=== PATIENT | male | born 1960 | race Caucasian/White ===

== ENCOUNTER 2019-08-06 07:46 | Emergency (ER) | payer BC, SELFPAY ==
[2019-08-06] VITALS (18 sets, daily range): BP systolic 136–157; BP diastolic 89–112; PULSE 79–175; RESP 13–22; TEMP 36.2; O2SAT 89–98
--- NOTE | ~2019-08-06 | XR_ITS ---
EXAMINATION: XR chest 1V portable DATE: 08/06/2019 08:21 INDICATION: Shortness of breath. Tachycardia. TECHNIQUE: A single frontal view of the chest was obtained. COMPARISON: None. FINDINGS: The chest demonstrates clear lungs without pneumonia, pleural effusion, or pneumothorax. Th e heart size is normal. IMPRESSION: 1. No acute cardiopulmonary disease. Reviewed, dictated and finalized at location A. PROGRAMMER ANALYST
--- NOTE | 2019-08-06 07:58 | ECG_ITS ---
Measurements Intervals [place] Rate: 169 P: TN: 0 QRS: 10 QRSD: 77 T: 33 QT: 250 QTc: 420 Interpretive Statements ATRIAL FIBRILLATION WITH RAPID VENTRICULAR RESPONSE BASELINE ARTIFACT- V3 ABNORMAL ECG Electronically Signed On 08-06-2019 10:34:26 MAGENTO WEB DEVELOPER by Phoenix Parmar D.O.
--- NOTE | 2019-08-06 08:00 | ED.ARRPALP ---
HPI - Arrhythmia/Palpitations General Chief Complaint: Arrhythmia/Palpitations Stated Complaint: sob, weak Time Seen by Provider: 08/06/19 07:53 Source: patient Mode of arrival: ambulatory Limitations: no limitations History of Present Illness HPI narrative: 58 yo male with h/o hypertension who presents with c/o rapid heart rate. Patient states he noticed yesterday his heart was beating rapidly and it has continued this morning. He also noticed when he was walking into work this morning he was having difficulty breathing. HE denies chest pain, nausea, vomiting, cough or fever. He denies previous history of palpitations or an arrhythmia. He notes he takes lisinopril, metoprolol and felodipine for hypertension and he has taken these medications this morning. He also denies cardiac disease. He has history of heavy alcohol use but he denies history of withdrawal symptoms. MD complaint: rapid heart beat Onset (ago): day(s) (1) Duration: constant Related Data Home Medications Medication Instructions Recorded Confirmed felodipine mg PO 08/06/19 lisinopril 08/06/19 metoprolol succinate PO 08/06/19 Allergies Allergy/AdvReac Type Severity Reaction Status Date / Time No Known Allergies Allergy Verified 08/06/19 08:01 Review of Systems Review of Systems: All systems reviewed & are unremarkable except as noted in HPI and below Constitutional: Constitutional: Denies chills, Denies fever(s) and Reports weakness Cardiovascular: Cardiovascular: Denies chest pain, Reports rapid heart rate and Denies radiating jaw, neck or arm pain Respiratory: Respiratory: Denies cough, Reports dyspnea and Denies wheezing Gastrointestinal: Gastrointestinal: Denies abdominal pain, Denies nausea and Denies vomiting Neurologic: Denies dizziness PMFSH Past Medical History Medical History (Updated 08/06/19 @ 09:40 by Suzanne Etienne MD) Hypertension Social History Social History (Updated 08/06/19 @ 08:06 by Suzanne Etienne MD) Smoking packs per day: 2 Smoking cigarettes per day: 40.0 Smoking status: Current every day smoker Alcohol intake: current Substance use: never Gender identity (if verbalized by the patient): Male Comments Surgical history of bilateral meniscus knee repair. Exam Narrative: Exam Narrative: GENERAL: Well-appearing, well-nourished, and in no acute distress. HEAD: Normocephalic, atraumatic EYES: PERRLA and EOMI, conjunctiva clear without discharge THROAT:Mucous membranes moist, Oropharynx normal without erythema, exudate, peritonsillar swelling or fluctuance NECK: Supple, without lymphadenopathy or mass RESPIRATORY: No respiratory distress, Airway patent, Respirations non-labored, Clear to auscultation without rales, rhonchi or wheeze HEART: irregular irRegular rhythm and tachycardic rate No murmur heard. Normal peripheral pulses. ABDOMEN: Soft, nontender, nondistended, normal active bowel sounds. No masses. No rebound or guarding, No organomegaly. EXTREMITIES: bilateral 1+ pitting edema, normal strength with full range of motion. SKIN: Warm, dry, normal color without rash NEURO: Alert and oriented x3. CN 2-12 grossly intact. No focal deficits. PSYCH: Normal mood and affect. Course Reevaluation(s) Reevaluation #1: Patient has spontaneously converted to sinus rhythm Date: 08/06/19 Time: 08:20 Reevaluation #2: I Discussed case with Lisseth [facility] Health And Safety Instructor for heart care group. She agrees patient can follow up for outpatient evaluation. And I will discuss with PCP about anticoagulation. Date: 08/06/19 Time: 08:59 Reevaluation #3: I discussed case with Aden NAZARIO aitchbone breaker for Dr. Kaminski. PAtient has CHADs score of 2 given HtN and DM so agreeable with anticoagulation. Date: 08/06/19 Time: 09:29 Additional Reevaluation(s): Patient continues to be sinus rhythm with rate of 83. I discussed plan to follow up with Dr. Kaminski and loom checker as outpatient. I Discussed blood sugar is elevat
[2019-08-06 08:08] LABS: Basophils Absolute Auto 0.1 K/mm3 (0.0-0.1); Basophils Percent Auto 0.8 % (0.2-1.2); Eosinophils Absolute Auto 0.1 K/mm3 (0-0.3); Eosinophils Percent Auto 1.2 % (0-4.4); Hematocrit 50.7 % (42.0-52.0); Hemoglobin 17.4 g/dL (14.0-18.0); Immature Granulocyte Absolute 0.05 K/mm3 (0.00-0.031); Immature Granulocyte Percent A 0.5 % (0-0.5); Lymphocytes Absolute Auto 1.78 K/mm3 (0.9-3.2); Lymphocytes Percent Auto 16.4 % (18.3-44.2); Mean Corpuscular HGB Conc 34.3 g/dl (32-36); Mean Corpuscular Hemoglobin 32.6 pg (26-34); Mean Corpuscular Volume 94.9 fl (80-100); Mean Platelet Volume 8.8 fl (7.4-10.4); Monocytes Absolute Auto 0.7 K/mm3 (0.1-0.6); Monocytes Percent Auto 6.3 % (2.6-8.5); Neutrophils Absolute Auto 8.1 K/mm3 (1.3-6.7); Neutrophils Percent Auto 74.8 % (45.5-73.1); Platelet Count Result 236 k/mm3 (150-375); Red Blood Count 5.34 M/mm3 (4.6-6.20); Red Cell Distribution Width 12.3 % (11.5-14.5); White Blood Count 10.9 K/mm3 (4.5-10.0)
--- NOTE | 2019-08-06 08:10 | PC.NURSE ---
Preparing to give cardiazem IV, note pt's rate decreased and pt has converted to [address] Etienne aware, holding cardiazem. Repeat EKG being done.
--- NOTE | 2019-08-06 08:14 | ECG_ITS ---
Measurements Intervals [place] Rate: 98 P: 49 NE: 132 QRS: 4 QRSD: 82 T: 18 QT: 336 QTc: 430 Interpretive Statements SINUS RHYTHM WITH SINUS ARRHYTHMIA NORMAL ECG Electronically Signed On 08-08-2019 7:58:24 PORTABLE SAWMILL OPERATOR by Phoenix Parmar D.O.
[2019-08-06 08:16] LABS: INR 0.9; Prothrombin Time 12.2 Seconds (11.1-14.7)
[2019-08-06 08:17] LABS: Partial Thromboplastin Time 26.4 SECONDS (22.3-36.8)
[2019-08-06 08:19] LABS: Blood Urea Nitrogen 14 mg/dL (9-20); Calcium 9.1 mg/dL (8.4-10.2); Carbon Dioxide 27 mmol/L (22-30); Chloride 98 mmol/L (98-107); Estimated CRCL calculation 115 ml/min; Estimated Glomerular Filt Rate > 60; Glucose 238 mg/dL (75-110); Magnesium 2.1 mg/dL (1.6-2.3); Potassium 4.8 mmol/L (3.4-5.0); Sodium 135 mmol/L (137-145)
[2019-08-06 08:34] LABS: NT Pro B Type Natriuretic Pept 704 PG/ML (5-100); Troponin I 0.012 ng/mL (0.000-0.034)
== END 2019-08-06 10:15 | disposition home or self-care (01) ==
PROVIDERS: Emergency Provider General Practice; PCP Internal Medicine
DX: I48.91 Unspecified atrial fibrillation (principal); R73.9 Hyperglycemia, unspecified; I10 Essential (primary) hypertension; F17.210 Nicotine dependence, cigarettes, uncomplicated
CPT/HCPCS: 36415; 71045; 80048; 83735; 83880; 84443; 84484; 85025; 85610; 85730; 93005; 99284

== ENCOUNTER 2019-08-21 13:21 | Outpatient (CLI) | payer BC, SELFPAY ==
--- NOTE | 2019-08-21 | ECHO_ITS ---
Patient Info Name: Neel Zhong Age: 58 years : 1960 Gender: Male Ht: 72 in Wt: 245 lbs BSA: 2.41 m2 HR: 78 bpm BP: 181 / 115 mmHg Technical Quality: Good Exam Date: 08/21/2019 1:41 PM Exam Location: [facility] Patient Status: Outpatient Admit Date: 08/21/2019 Staff Ordering Physician: Gage Kilgore PA-C [employer] Service Technician: Rosibel Cevallos RDCS Attending Provider: Gage Kilgore PA-C Referring Physician: Magui RAMIREZ; Exam Type: CA echo doppler color flow Study Info Indications - NEW ONSET AFIB Complete two-dimensional, color flow and Doppler transthoracic echocardiogram is performed. Summary 1. Left ventricular chamber dimension is normal. 2. Left ventricular systolic function is normal, estimated at 60-65%. 3. There is moderately increased left ventricular wall thickness. 4. The left ventricular diastolic function is grade II diastolic dysfunction. 5. E/e' 10 is mildly elevated. 6. Left atrial chamber dimension is mildly enlarged. 7. There is mild aortic valve sclerosis. 8. No pulmonary hypertension, estimated pulmonary arterial systolic pressure is 31 mmHg. 9. There is trace pulmonic regurgitation. 10. The aortic root size at the sinus of Valsalva is borderline dilated at 4.0 cm. Left Ventricle E/e' 10 is mildly elevated. Left ventricular chamber dimension is normal. Left ventricular systolic function is normal, estimated at 60-65%. There is moderately increased left ventricular wall thickness. The left ventricular diastolic function is grade II diastolic dysfunction. Right Ventricle Right ventricular chamber dimension is normal. Right ventricular systolic function is normal. Left Atria Left atrial chamber dimension is mildly enlarged. Right Atria Right atrial chamber dimension is normal. Aortic Valve The aortic valve is trileaflet. There is mild aortic valve sclerosis. There is no aortic valve stenosis. There is no aortic valve regurgitation. Pulmonic Valve There is trace pulmonic regurgitation. Mitral Valve There is no mitral valve stenosis. There is no mitral valve regurgitation. Tricuspid Valve There is no tricuspid valve regurgitation. No pulmonary hypertension, estimated pulmonary arterial systolic pressure is 31 mmHg. Pericardium/Pleural There is no pericardial effusion. Inferior Vena Cava Normal inferior vena cava with >50% collapse upon inspiration consistent with normal right atrial pressure, 5 mmHg. Aorta The aortic root size at the sinus of Valsalva is borderline dilated at 4.0 cm. Left Ventricular Outflow Tract Name Value Normal LVOT 2D LVOT Diameter 2.2 cm LVOT Doppler LVOT Peak Gradient 5 mmHg LVOT Mean Gradient 3 mmHg LVOT VTI 22 cm LVOT VTI/AV VTI Ratio 1.1 LVOT Stroke Volume 85 ml LVOT CO 17.2 l/min LVOT CI 7.1 l/min/m2 Pulmonic Valve
== END 2019-08-21 13:22 | disposition home or self-care (01) ==
PROVIDERS: PCP Internal Medicine; Visit Provider Physician Assistant
DX: I48.91 Unspecified atrial fibrillation (principal)
CPT/HCPCS: 93306

== ENCOUNTER 2020-11-12 11:30 | Outpatient (CLI) | payer BC, SELFPAY ==
--- NOTE | ~2020-11-12 | XR_ITS ---
EXAMINATION: XR heel LT min 2V DATE: 11/12/2020 11:52 INDICATION: Left heel pain. TECHNIQUE: 2 views of left calcaneus were obtained. COMPARISON: None. FINDINGS: Bone alignment is normal. No fracture. Joint spaces are normal. There are enthesophytes at the posterior and plantar aspects of calcaneal tuberosity. IMPRESSION: 1. No fracture. Reviewed, dictated and finalized at location A. IMPRESSION: 1. No fracture.
== END 2020-11-12 11:31 | disposition home or self-care (01) ==
LOC: ANHIMG 11:36
PROVIDERS: PCP Internal Medicine; Visit Provider Physician Assistant
DX: M79.672 Pain in left foot (principal)
CPT/HCPCS: 73650

== ENCOUNTER 2021-11-21 10:11 | Outpatient (CLI) | payer BC, SELFPAY ==
--- NOTE | ~2021-11-21 | XR_ITS ---
XR foot RT min 3V DATE: 11/21/2021 10:30 INDICATION: Right foot pain, swelling, bruising TECHNIQUE: 4 views COMPARISON: None FINDINGS: There is soft tissue swelling of the dorsum of the forefoot. Mild right first metatarsophalangeal joint. Minimal posterior calcaneal enthesopathy. No fracture or dislocation, periosteal reaction or bone destruction. IMPRESSION: Soft tissue swelling of the dorsum of the forefoot Mild right first metatarsophalangeal joint osteoarthritis Mild posterior calcaneal enthesopathy Reviewed, dictated and finalized at location A.
== END 2021-11-21 10:12 | disposition home or self-care (01) ==
LOC: ANHIMG 10:15
PROVIDERS: PCP Internal Medicine; Visit Provider Internal Medicine
DX: M79.671 Pain in right foot (principal); M77.31 Calcaneal spur, right foot
CPT/HCPCS: 73630

== ENCOUNTER → 2022-01-03 09:30 | Outpatient (CLI) | payer BC, SELFPAY ==
--- NOTE | ~2022-01-03 | MR_ITS ---
EXAMINATION: MR foot RT wo con DATE: 01/03/2022 10:15 INDICATION: Pain at the lateral aspect of the right forefoot. Assess for fifth metatarsal stress frac ture. TECHNIQUE: Magnetic resonance imaging (MRI) of the right fore/mid foot was performed without intraven ous contrast. Sequences included sagittal T1-weighted FSE, sagittal fluid sensitive FSE STIR, coronal PD-weighted FS FSE, coronal T1-weighted FSE, axial PD-weighted FS FSE, and axial PD-weighted FSE. COMPARISON: Radiographs dated 11/21/2021 FINDINGS: Bone alignment is normal. No fracture, stress reaction or pathologic marrow replacing process. Mild o steoarthritis at the first metatarsophalangeal joint with small foci of mild degenerative subarticula r edema-like signal change at the head of the first metatarsal. Mild subarticular cystlike changes at the dorsal aspect of the head of the second metatarsal and at the proximal cuboid along the articula tion with the anterior calcaneus likely related to overlying high-grade chondromalacia. Remaining rekha nt spaces are unremarkable. Physiologic amount of fluid in the joint spaces. Visualized portions of t he flexor and extensor tendons are normal. Lisfranc ligament complex as well as the collateral ligame nt complex at the metatarsophalangeal and interphalangeal joints are normal. Moderate fatty atrophy o f the intrinsic musculature of the forefoot with diffuse increased fluid signal suggesting acute on c hronic denervation such as in the setting of diabetic neuropathy. There is a 2.3 x 1.7 x 0.5 cm locul ated fluid collection at the dorsum of the forefoot overlying the proximal metadiaphyseal regions of the fourth and fifth metatarsals. There is mild subcutaneous edema thickening more distally along the dorsum of the forefoot. IMPRESSION: 1. Nonspecific 2.3 x 1.7 x 0.5 cm loculated fluid collection in the subcutaneous tissues dorsal to th e base of the fourth and fifth metatarsals. Differential would include a venous varix, hematoma/serom a or abscess in the appropriate clinical setting. 2. Mild polyarticular osteoarthritis with regions of high-grade chondromalacia with mild degenerative subarticular changes at the first and second metatarsophalangeal and calcaneocuboid joints. 3. No skull fracture, stress reaction or other acute osseous abnormality. Reviewed, dictated and finalized at location A. IMPRESSION: 1. Nonspecific 2.3 x 1.7 x 0.5 cm loculated fluid collection in the subcutaneou s tissues dorsal to the base of the fourth and fifth metatarsals. Differential would include a venous varix, hematoma/seroma or abscess in the appropriate cli nical setting. 2. Mild polyarticular osteoarthritis with regions of high-grade chondromalacia with mild degenerative subarticular changes at the first and second metatarsoph alangeal and calcaneocuboid joints. 3. No skull fracture, stress reaction or other acute osseous abnormality.
== END ==
PROVIDERS: PCP Internal Medicine; Visit Provider Podiatrist Foot & Ankle Surgery
DX: S92.351A Displaced fracture of fifth metatarsal bone, right foot, initial encounter for closed fracture (principal); X58.XXXA Exposure to other specified factors, initial encounter; M19.071 Primary osteoarthritis, right ankle and foot
CPT/HCPCS: 73718

== ENCOUNTER 2023-01-02 17:48 | Emergency (ER) | payer BC, SELFPAY ==
--- NOTE | 2023-01-02 17:54 | ED.EXTPRO ---
HPI - Extremity Problem General Chief complaint: Extremity Injury, Lower Stated complaint: Rt Foot Pain and Swelling Time Seen by Provider: 01/02/23 18:00 Source: patient Mode of arrival: ambulatory Limitations: no limitations History of Present Illness HPI Narrative: Neel is a 62-year-old male patient presenting to the clinic today with complaints of right foot pain and swelling. He reports 2-3 days ago he stepped on a rock while barefooted and it punctured the bottom of this foot. He now has redness, pain, and swelling to his right foot. Tetanus shot is up-to-date per patient. He denies any fever or chills. Denies being a diabetic. His orthopedic provider just sent in prescription for Keflex for his recent knee surgery Related Data Home Medications Medication Instructions Recorded Confirmed aspirin 81 mg tablet,delayed 81 mg PO DAILY 05/15/19 07/11/22 release (Adult Low Dose Aspirin) spironolactone 25 mg tablet 25 mg PO DAILY 12/06/20 07/11/22 diltiazem HCl 240 mg mg PO 01/02/23 capsule,extended release 24 hr, controlled lisinopril 20 mg tablet mg 01/02/23 metoprolol succinate 100 mg mg PO 01/02/23 tablet,extended release 24 hr Allergies Allergy/AdvReac Type Severity Reaction Status Date / Time No Known Allergies Allergy Verified 07/11/22 13:36 Review of Systems Review of Systems: Pertinent positives per HPI. Patient denies any fever, chills, rash, headache, visual changes, dizziness, cough, runny nose, sore throat, shortness of breath, chest pain, palpitations, nausea, vomiting, diarrhea, constipation, abdominal pain, or any urinary issues. [facility] Past Medical History Medical History Hypertension Family History Family History Sibling Patient's sister is in good health Family history of diabetes mellitus in first degree relative, Onset Age: 35 Patient's brother is Father Patient's father is Social History Social History (Updated 07/11/22 @ 13:36 by Keila Salinas CMA) Smoking packs per day: 2 Smoking cigarettes per day: 40.0 Smoking status: Current every day smoker Tobacco type: cigarettes Second hand tobacco smoke exposure: No Alcohol intake: current Drinks per week: 48 Alcohol use details: 8 beers per day Substance use: never Lack of Transportation: No Lack of Food: Never True Current Housing: I Have Housing Concerned About Future Housing: No Difficulty Paying Gas/Electric Bills: No Difficulty Paying for Meds: No Currently Unemployed: No Education: Associate Degree Difficulty w/ Childcare or Family Care: No Gender identity (if verbalized by the patient): Male Comments At the time of my signature, I reviewed and agree with the nursing past medical, surgical, social, and family history. There is no relevant family history pertinent to the patient complaint. Exam Narrative: General: Well-developed, well nourished, in no apparent distress Head: Normocephalic, atraumatic. Cardio: Regular rate and rhythm, s1 and s2 normal, no murmur appreciated. Resp: Clear to auscultation bilaterally, no rhonchi, rales, wheezing or rubs. Musculoskeletal: No deformity, puncture wound to the bottom of the 1st metatarsal, redness, erythema, and swelling noted to the medial foot, over the 1st metatarsal, with extended redness across the metatarsals, redness is not extending to the ankle at this time, tender to palpation over the puncture wound, medial foot, and 1st metatarsal, grossly normal range of motion, muscle strength strong and equal, peripheral pulse strong, no cyanosis, normal gait and station Course Course Emergency Course: Portions of this record may have been created with voice recognition software. Level of Care: Express Care Visit Vital Signs Vital signs: Vital signs reviewed MDM -
[2023-01-02 18:04] VITALS: BP 125/84; PULSE 78; RESP 16; TEMP 36.7; O2SAT 99
== END 2023-01-02 18:24 | disposition home or self-care (01) ==
PROVIDERS: Emergency Provider Nurse Practitioner Family; PCP Internal Medicine
DX: L03.115 Cellulitis of right lower limb (principal); S91.331A Puncture wound without foreign body, right foot, initial encounter; W22.8XXA Striking against or struck by other objects, initial encounter; F17.210 Nicotine dependence, cigarettes, uncomplicated; I10 Essential (primary) hypertension; Z79.82 Long term (current) use of aspirin
CPT/HCPCS: 99213; G0463

== ENCOUNTER 2023-01-21 09:51 | Outpatient (CLI) | payer BC, SELFPAY ==
--- NOTE | ~2023-01-21 | CT_ITS ---
EXAMINATION:CT lung screening DATE: 01/21/2023 10:24 INDICATION: Tobacco use. Current smoker with 30 pack year history. TECHNIQUE: Computed tomography (CT) of the chest was performed without intravenous contrast. Automate d exposure control and iterative reconstruction technique were employed. The dose-length product (DLP ) was 145.92 mGy-cm. COMPARISON: None. FINDINGS: There is mild emphysema. There is mild dependent atelectasis bilaterally. No pleural effusi on. The heart size is normal. There are coronary artery calcifications. No pericardial effusion. Ther e is a 2.7 cm mass in left adrenal gland measuring low attenuation, consistent with an adenoma. There is mild thoracic spondylosis. IMPRESSION: 1. Lung-RADS category 1: Negative. Continue annual screening with noncontrast low-dose chest CT in 12 months. Reviewed, dictated and finalized at location E. IMPRESSION: 1. Lung-RADS category 1: Negative. Continue annual screening with noncontrast l ow-dose chest CT in 12 months.
== END 2023-01-21 09:52 | disposition home or self-care (01) ==
PROVIDERS: PCP Internal Medicine; Visit Provider Internal Medicine
DX: Z12.2 Encounter for screening for malignant neoplasm of respiratory organs (principal); F17.210 Nicotine dependence, cigarettes, uncomplicated
CPT/HCPCS: 71271

== ENCOUNTER 2024-08-07 12:55 | Outpatient (CLI) | payer OTHER, SELFPAY | END 2024-08-07 12:56 | disposition home or self-care (01) | PROVIDERS: PCP Internal Medicine; Visit Provider Internal Medicine | DX: Z12.11 Encounter for screening for malignant neoplasm of colon (principal); F17.210 Nicotine dependence, cigarettes, uncomplicated | CPT/HCPCS: 71271 ==

== ENCOUNTER 2024-09-01 10:36 | Outpatient (CLI) | payer OTHER, SELFPAY ==
--- NOTE | ~2024-09-01 | XR_ITS ---
XR foot LT 2V Ordering provider: Sujata Alcocer MD History: . Rheumatoid arthritis . Comparison: None. FINDINGS: BONES: No acute fracture or dislocation. Calcaneus spur. Subarticular cystic changes seen between the navicular bone and the middle cuneiform bone. JOINT SPACES: Narrowing of the proximal and distal interphalangeal joints. No tarsal coalition. SOFT TISSUES: Normal. IMPRESSION: No acute osseous abnormality left foot. Polyarticular osteoarthritic changes. Reviewed, dictated and finalized at location A.
--- NOTE | ~2024-09-01 | XR_ITS ---
XR foot RT 2V Ordering provider: Sujata Alcocer MD History: . Rheumatoid arthritis . Comparison: None. FINDINGS: BONES: No acute fracture or dislocation. Minimal periarticular osteopenia. JOINT SPACES: Normal. No tarsal coalition. No definite erosion seen. SOFT TISSUES: Soft tissue t swelling over the first metacarpophalangeal joint. IMPRESSION: No acute osseous abnormality of the right foot. Minimal periarticular osteopenia. No definite erosions. Soft tissue swelling over the first metatarso phalangeal joint. Reviewed, dictated and finalized at location A. IMPRESSION: No acute osseous abnormality of the right foot. Minimal periarticular osteopenia. No definite erosions. Soft tissue swelling ov er the first metatarsophalangeal joint.
--- NOTE | ~2024-09-01 | XR_ITS ---
XR hand RT 2V Ordering provider: Sujata Alcocer MD History: . Rheumatoid arthritis . Comparison: None. FINDINGS: BONES: No acute fracture or dislocation. JOINT SPACES: Narrowing of the first, second and third metacarpophalangeal joints. Osteoarthritic mathew nges of the scaphotrapezial joint is also noted. SOFT TISSUES: Normal. IMPRESSION: No acute osseous abnormality right hand. Polyarticular osteoarthritic changes. Reviewed, dictated and finalized at location A.
--- NOTE | ~2024-09-01 | XR_ITS ---
XR hand LT 2V Ordering provider: Sujata Alcocer MD History: . Rheumatoid arthritis . Comparison: None. FINDINGS: BONES: No acute fracture or dislocation. Minimal periarticular osteopenia. Small bony fragment seen near to the distal ulna. JOINT SPACES: Narrowing of the first, second and third metacarpophalangeal joints. Narrowing of the d istal interphalangeal joints. Subarticular cystic changes are seen in the distal interphalangeal join t. Narrowing of the first carpometacarpal joint. SOFT TISSUES: Unremarkable. IMPRESSION: No acute osseous abnormality left hand. Polyarticular osteoarthritic changes. Reviewed, dictated and finalized at location A.
--- OUTSIDE RECORDS SUMMARY | 2024-09-01 12:30 | XMS_ITS | Clinical Summary ---
Author Organization [facility] Address [address] [place] [address] Phone Care Team Providers Care Ceramic Research Engineer Name Role Phone Kamar Kaminski DO Primary Care Provider [phone] Allergies No known active allergies Medications Medication Sig Dispensed Refills Start Date End Date Status metoprolol succinate XL (TOPROL-XL) 100 MG 24 hr tablet 1 daily 0 09/24/2017 Active felodipine (PLENDIL) 5 MG 24 hr tablet 1 daily 0 02/13/2018 Active aspirin (ASPIR-LOW) 81 MG EC tablet 1 daily 0 09/22/2017 Active lisinopril (PRINIVIL,ZESTRIL) 40 MG tablet 1 daily 0 09/24/2017 Active Active Problems Problem Noted Date Diagnosed Date Essential (primary) hypertension 09/24/2017 Osteoarthritis 09/24/2017 Snoring 09/24/2017 Family History Medical History Relation Comments Hypertensive disorder Father Hypertensive disorder Mother Kidney disease Sibling Relation Status Comments Father Mother Sibling Social History Tobacco Use Types Packs/Day Years Used Date Smoking Tobacco: Heavy Smoker Smokeless Tobacco: Never Alcohol Use Standard Drinks/Week Comments Yes 48 (1 standard drink = 0.6 oz pu re alcohol) Sex and Gender Information Value Date Recorded Sex Assigned at Not on file Gender Identity Not on file Sexual Orientation Not on file Last Filed Vital Signs Vital Sign Reading Time Taken Comments Blood Pressure 138/60 09/23/2018 2:59 PM CDT Pulse 60 09/23/2018 2:59 PM CDT Temperature 37.1 C (98.7 F) 09/23/2018 2:59 PM CDT Respiratory Rate - - Oxygen Saturation - - Inhaled Oxygen Concentration - - Weight 110 kg (242 lb) 09/23/2018 2:59 PM CDT Height 182.9 cm (6') 09/23/2018 2:59 PM CDT Body Mass Index 32.82 09/23/2018 2:59 PM CDT Plan of Treatment Health Maintenance Due Date Last Done Comments Influenza Vaccine (#1) 2024 Care Teams Ceramic Research Engineer Relationship Specialty Start Date End Date Kamar Kaminski DO [address] [facility] [address] [place] [id number] PCP - General Internal Medicine 09/23/18
--- OUTSIDE RECORDS SUMMARY | 2024-09-01 12:30 | XMS_ITS | Referral Summary ---
Author Organization [facility] [place] [address] Address [address] [place] [address] Care Team Providers Care Food Technology Teacher Name Role Phone Bo Branch DO Primary Care Provider [phone] Allergies No known active allergies Medications metoprolol XL (TOPROL-XL) 100 mg 24 hr tablet Take 1 tablet (100 mg total) by mouth daily 0 Active Eliquis 5 mg tablet Take 1 tablet (5 mg total) by mouth 2 (two) times a day 0 Active spironolactone (ALDACTONE) 25 mg tablet Take 1 tablet (25 mg total) by mouth daily 90 tablet 2 4 Active lisinopriL (PRINIVIL,ZEST RIL) 20 mg tablet Take 1 tablet (20 mg total) by mouth daily 90 tablet 5 Active lisinopriL (PRINIVIL,ZEST RIL) 20 mg tablet Take 1 tablet (20 mg total) by mouth daily 14 tablet 5 07/10/19 26 Active DILT-XR 240 mg 24 hr capsule TAKE 1 CAPSULE DAILY 90 capsule 5 Active DILT-XR 240 mg 24 hr capsule TAKE 1 CAPSULE DAILY 90 capsule 4 09/02/19 25 Discontinued Active Problems No known active problems Social History Tobacco Use Types Packs/Day Years Used Date Smoking Tobacco: Every Day Cigarettes Smokeless Tobacco: Never Tobacco Cessation:Ready to Q uit: Not Asked; Counseling Given: Not Answered Alcohol Use Standard Drinks/Week Comments Yes 48 (1 standard drink = 0.6 oz pu re alcohol) Sex and Gender Information Value Date Recorded Sex Assigned at Not on file Legal Sex Male 9:19 AM PIG IRON LOADER Gender Identity Not on file Sexual Orientation Not on file Last Filed Vital Signs Vital Sign Reading Time Taken Comments Blood Pressure 120/74 04/30/2024 1:05 PM PIG IRON LOADER Pulse 75 04/30/2024 1:05 PM PIG IRON LOADER Temperature - - Respiratory Rate - - Oxygen Saturation 96% 04/30/2024 1:05 PM PIG IRON LOADER Inhaled Oxygen Concentration - - Weight 83.5 kg (184 lb) 04/30/2024 1:05 PM PIG IRON LOADER Height 182.9 cm (6') 04/30/2024 1:05 PM PIG IRON LOADER Body Mass Index 24.95 04/30/2024 1:05 PM PIG IRON LOADER Plan of Treatment Not on file Insurance [employer] [place] PREFERRED Care Teams Food Technology Teacher Relationship Specialty Start Date End Date Bo Branch DO [address] [address] PCP - General Internal Medicine 04/30/24
--- OUTSIDE RECORDS SUMMARY | 2024-09-01 12:30 | XMS_ITS | Clinical Summary ---
Author Organization [facility] Address [address] [place] [address] Care Team Providers Care International Marketing Executive Name Role Phone Unavailable Primary Care Provider Unavailabl e Social History Tobacco Use Types Packs/Day Years Used Date Smoking Tobacco: Never Assessed Sex and Gender Information Value Date Recorded Sex Assigned at Not on file Legal Sex Male 9:45 AM CDT Gender Identity Not on file Sexual Orientation Not on file Plan of Treatment Health Maintenance Due Date Last Done Comments DTAP/TDAP/TD VACCINES (1 - Tdap) 1980 COLORECTAL SCREENING 2006 Colorectal Cancer Screening 2006 FIT-DNA Q 3 years 2006 FIT/FOBT Q 1 year 2006 Flex Sig/CT Colonography Q 5 years 2006 ZOSTER VACCINE (1 of 2) 09/19/2011 INFLUENZA VACCINE (#1) 2024 COVID-19 Vaccine (2 - 2023-2 5 season) 2024 04/29/2021 RSV VACCINE (60+ or ) (1 - 1-dose 75+ series) 2036 PNEUMOCOCCAL VACCINE 0-49 YEARS Aged Out No longer eligible based on patient's age to complete this [place] [id number]
--- OUTSIDE RECORDS SUMMARY | 2024-09-01 12:30 | XMS_ITS | Clinical Summary ---
Author Organization [facility] Address [address] [place] [address] Care Team Providers Care Manager Talent Acquisition Name Role Phone Unavailable Primary Care Provider Unavailabl e Immunizations Immunization Administration Dates Next Due Covid-19, Mrna, Lnp-s, PF, 5 0 mcg/0.25 mL dose (Moderna) 04/29/2021 Social History Tobacco Use Types Packs/Day Years Used Date Smoking Tobacco: Never Assessed Sex and Gender Information Value Date Recorded Sex Assigned at Not on file Legal Sex Male 10:49 AM HEARING CARE PROFESSIONAL Gender Identity Not on file Sexual Orientation Not on file Plan of Treatment Health Maintenance Due Date Last Done Comments Hepatitis C Virus (HCV) Screening 1960 TdaP Immunization 1960 Colonoscopy 2006 Colorectal Cancer Screening 2006 Cologuard 09/19/2011 Immunochemical Fecal Occult Blood 09/19/2011 Pneumococcal Immunization (5 0+ years) (1 of 1 - PCV) 09/19/2011 Zoster Immunization (1 of 2) 09/19/2011 Influenza Immunization (#1) 2024 SARS-COV-2 Immunization ( season) 2024 04/29/2021, 08/24/2020, 07/27/2020 Respiratory Syncytial Virus (RSV) Immunization (Adult) (1 - 1-dose 75+ series) 2036 Hepatitis B Immunization Aged Out No longer eligible based on patient's age to complete this topic Meningococcal Immunization (ACWY) Aged Out No longer eligible b ased on patient's age to complete this topic Rotavirus Immunization Aged Out No lo nger eligible based on patient's age to complete this topic
--- OUTSIDE RECORDS SUMMARY | 2024-09-01 12:31 | XMS_ITS | Clinical Summary ---
Author Organization [facility] Address [address] [place] [address] Care Team Providers Care Claims Adjuster Crop Name Role Phone GordyGómezKamarcesar Haas DO Primary Care Provider [phone] Oscar Cedillo MD Unavailable Source Comments [facility],non-owned Affiliates and Associated Physician Practices is amultiple site organization consisting of ambulatory clinics and hospital sitesin [place], [place] and [place]. This disclosure is being madepursuant to the Care Everywhere program and may not contain all information available regarding this patient. Last updated 18.[facility] Allergies No known active allergies Medications * Be aware that medications may not be up to date on this document. Alwaysverify current medications with the patient. Medication Sig Dispensed Refills Start Date End Date Status lisinopril (Prinivil; Zestril) 20 MG tabletIndications: Hypertension Take 1 tablet by mouth once daily Reasons: High Blood Pressure Disorder Active metoprolol succinate XL 24hr (TOPROL XL) 100 MG tablet Take 1 (one) tablet by mouth once daily 10/03/2021 Active spironolactone (ALDACTONE) 25 MG tablet Take 1 (one) tablet by mouth once daily 11/04/2021 Active ASPIRIN 81 POIndications:clot prevention post surg Take by mouth once daily Reasons: clot prevention post surg Active Vitamin D, Ergocalciferol, 09449 units CAPS Take by mouth every 30 days Active dilTIAZem SR 24hr (Dilacor XR) 240 MG capsule Take 1 (one) capsule by mouth once daily 10/11/2022 Active Eliquis 5 MG tabletIndications: Thromboembolism secondary to Atrial Fibrillation,2.5 mg twice a day for 3 weeks then resume 5mg twice daily Take 1 tablet by mouth 2 times daily Reasons: Thromboembolism secondary to Atrial Fibrillation, 2.5 mg twice a day for 3 weeks then resume 5mg twice daily 06/30/2022 Active Active Problems Problem Noted Date Diagnosed Date Primary osteoarthritis of right knee 11/09/2021 Essential (primary) hypertension 09/24/2017 Family History Medical History Relation Name Comments Diabetes; unknown type Brother Relation Name Status Comments Brother Social History Tobacco Use Types Packs/Day Years Used Date Smoking Tobacco: Every Day Cigarettes 1.5 47.2 Started: 1976 Smokeless Tobacco: Never Alcohol Use Standard Drinks/Week Comments Yes 12 (1 standard drink = 0.6 oz pu re alcohol) 12 pack per week OASIS D0700: Social Isolation Answer Da te Recorded Frequency of experiencing loneliness or isolatio n Never 12/08/2022 OASIS A1250: Transportation Answer Date Recorded Lack of Transportation (Medical) No 12/08/2022 Lack of Transportation (Non-Medical) No 12/08/2022 Patient Unable or Declines to Respond No 12/08/2022 OASIS B1300: Health Literacy Answer Ang e Recorded Frequency of needing help to read materials from doctor or pharmacy Never 12/08/2022 AUDIT-C Answer Date Recorded Q1: How often do you have a drink containing alcohol? 2-3 times a week 11/20/2022 Average Number of Drinks Not on file 023 Q3: How often do you have si x or more drinks on one occasion? Daily or almost daily 11/20/2022 Hunger Vital Sign Answer Date Recorded Within the past 12 months, y ou worried that your food would run out before you got the money to buy more. Never true 04/28/20 22 Within the past 12 months, t he food you bought just didn't last and you didn't have money to get more. Never true 04/28/2022 Sex and Gender Information Value Date Recorded Sex Assigned at Not on file Gender Identity Not on file Sexual Orientation Not on file Last Filed Vital Signs Vital Sign Reading Time Taken Comments Blood Pressure 130/72 12/08/2022 11:58 AM CDT Pulse 57 12/08/2022 11:58 AM CDT Temperature 36 C (96.8 F) 12/08/2022 11:58 AM CDT Respiratory Rate 16 12/08/2022 11:58 AM CDT Oxygen Saturation 97% 12/08/2022 11:58 AM CDT Inhaled Oxygen Concentration - - Weight 90 kg (198 lb 6.4 oz) 11/20/2022 7:54 AM CDT Height 180.3 cm (5' 11 ) 11/20/2022 7:54 AM CDT Body Mass Index 27.67 11/20/2022 7:54 AM CDT Plan of Treatment Health Maintenance Due Date Last Done Comments COLOGUARD (AGES 45-75) - COLON CA SCREENING 1961 COLON MONITORING 1961 COLONOSCOPY - COLON CA SCREENING 1961 CT COLONOGRAPHY - COLON CA SCREENING 1961 Colorectal Cancer Screening 1961 FIT - COLON CA SCREENING 1961 FLEX SIG - COLON CA SCREENING 1961 HIV SCREENING 1976 HEPATITIS C SCREENING 09/14/1979 DTAP/TDAP/TD VACCINES (1 - Tdap) 1980 PNEUMOCOCCAL VACCINE 50+ (1 of 2 - PCV) 1980 PNEUMOCOCCAL VACCINE (1 of 2 - PCV) 1980 ZOSTER VACCINE (1 of 2) 09/19/2011 COVID-19 VACCINE ( season) 2024 04/29/2021, 08/24/2020, 07/27/2020 INFLUENZA VACCINE (#1) 2024 DEPRESSION SCREENING 06/11/2024 SCREENING FOR DIABETES 11/20/2025 , 10/18/2022, 10/18/2022, Additional history exists LIPID TESTING 08/22/2027 08/21/2022, 07/27/2021 Respiratory Syncytial Virus (RSV) Vaccine Pt: or over 60 yrs (1 - 1-dose 75+ series) 2036 HEPATITIS B VACCINE Aged Out No longe r eligible based on patient's age to complete this topic HIB VACCINE Aged Out No longer eligi ble based on patient's age to complete this topic HPV VACCINE Aged Out No longer eligi ble based on patient's age to complete this topic MENINGOCOCCAL (Group B) VACCINE SHARED DECISION-MAKING Aged Out No longer eligible based on patient's age to complete this topic MENINGOCOCCAL GROUPS A/C/Y/W VACCINE Aged Out No longer eligible based on patient's age to complete this topic Medical Devices Implanted Type Area Veterinary Pharmacologist Device Identifier Shelf Expiration Date Model / Serial / Lot Cmnt Bone Djo Srg Cblt 40gm Hvisc Strl Implanted:Qty: 2 on 04/27/2022 by Earle Hopper MD at [facility] Right: Knee [employer] 07/07/2023 600-15-000 / / [id number] Cmpnt Ptlr Std 31mm 3 Pg Kn Ser A Implanted:Qty: 1 on 04/27/2022 by Earle Hopper MD at [facility] Right: Knee [employer] 03/14/2027 [id number] / / [id number] Tray Tib 79mm Kn Cocr I Beam Implanted:Qty: 1 on 04/27/2022 by Earle Hopper MD at [facility] Right: Knee [employer] 01/20/2032 [id number] / / [id number] Cmpnt Fem Kn Rt Cr Cmnt Prm Vngrd Intlk Implanted:Qty: 1 on 04/27/2022 by Earle Hopper MD at [facility] Right: Knee [employer] 03/15/2032 [id number] / / [id number] Brng [id number] Vngrd Arcm Kn Ant Stab Implanted:Qty: 1 on 04/27/2022 by Earle Hopper MD at [facility] Right: Knee [employer] 09/08/2026 [id number] / / [id number] Cmpnt Ptlr Std 31mm 3 Pg Kn Ser A Implanted:Qty: 1 on 11/20/2022 by Earle Hopper MD at [facility] Left: Knee [employer] 09/14/2027 [id number] / / [id number] Brng 64kzz17in Vngrd Arcm Kn Ant Stab Implanted:Qty: 1 on 11/20/2022 by Earle Hopper MD at [facility] Left: Knee [employer] 09/22/2027 [id number] / / [id number] Cmnt Bone Plc R 40gm Grn Implanted:Qty: 1 on 11/20/2022 by Earle Hopper MD at [facility] Left: Knee [employer] 04/10/2025 [id number] / / [id number] Cmnt Bone Plc R 40gm Grn Implanted:Qty: 1 on 11/20/2022 by Earle Hopper MD at [facility] Left: Knee [employer] 12/08/2024 [id number] / / [id number] Cmpnt Fem Kn Lt Cr Cmnt Prm Vngrd Intlk 67.5 Mm Implanted:Qty: 1 on 11/20/2022 by Earle Hopper MD at [facility] Left: Knee [employer] 10/04/2032 [id number] / / [id number] Tray Tib 79mm Kn Cocr I Beam Implanted:Qty: 1 on 11/20/2022 by Earle Hopper MD at [facility] Left: Knee [employer] 09/05/2032 [id number] / / [id number] Procedures Procedure Name Priority Date/Time Associated Diagnosis Comments GLUCOSE - POINT OF CARE Routine 11/20/2022 8:09 AM CDT from Last 3 Months or Most Recently Relevant to Health Maintenance Results * (ABNORMAL) GLUCOSE - POINT OF CARE (11/20/2022 8:09 AM CDT) Pathologist [facility] Glucose WB/POC 149(H) 70 - 106 mg/dL 11/20/2022 8:10 AM CDT [facility] Specimen Type Venous 11/20/2022 8:10 AM CDT [facility] Blood BLOOD SPECIMEN / Unknown 11/20/2022 8:09 AM CDT 11/20/2022 8:10 AM CDT Earle Hopper MD LAB - POINT OF CARE ORDERABLES [facility] [address] [place] [address] from Last 3 Months or Most Recently Relevant to Health Maintenance Advance Directives * Full Code (Latest Code Status on File) Date Activated Date Inactivated Comments 11/22/2022 1:51 PM To update the patient's code status, place a code status order. Do not modify or discontinue any currently active code status orders. * Full Code Date Activated Date Inactivated Comments 11/20/2022 12:42 PM 11/21/2022 3:02 PM * Full Code Date Activated Date Inactivated Comments 04/27/2022 2:54 PM 04/28/2022 3:02 PM Care Teams Claims Adjuster Crop Relationship Specialty Start Date End Date Kamar Kaminski DO [address] [place] [address] PCP - General Internal Medicine 11/08/21 Oscar Cedillo MD [address] [place] [address] Cardiovascular Disease 04/12/22
--- OUTSIDE RECORDS SUMMARY | 2024-09-01 12:31 | XMS_ITS | Clinical Summary ---
Author Organization [facility] [address] Address [address] [place] [address] Care Team Providers Care Cap Jewel Plate Assembler Name Role Phone Bo Branch DO Primary Care Provider [phone] Allergies No known active allergies Medications metoprolol [...] Discontinued Active Problems No known active problems Surgical History Surgery Date Site/Laterality Comments KNEE SURGERY Medical History Medical History Date Comments Hypertension Family History Medical History Relation Name Comments Diabetes Brother Relation Name Status Comments Brother (Age 34) Father (Age 84) Mother Alive Sister Alive Social History Tobacco Use Types Packs/Day Years Used Date Smoking Tobacco: Every Day Cigarettes Smokeless Tobacco: Never Tobacco Cessation:Ready to Q uit: Not Asked; Counseling Given: Not Answered Alcohol Use Standard Drinks/Week Comments Yes 48 (1 standard drink = 0.6 oz pu re alcohol) Sex and Gender Information Value Date Recorded Sex Assigned at Not on file Legal Sex Male 9:19 AM SECOND TIME WORKER Gender Identity Not on file Sexual Orientation Not on file Obstetrics History Last Filed Vital Signs Vital Sign Reading Time Taken Comments Blood Pressure 120/74 04/30/2024 1:05 PM SECOND TIME WORKER Pulse 75 04/30/2024 1:05 PM SECOND TIME WORKER Temperature - - Respiratory Rate - - Oxygen Saturation 96% 04/30/2024 1:05 PM SECOND TIME WORKER Inhaled Oxygen Concentration - - Weight 83.5 kg (184 lb) 04/30/2024 1:05 PM SECOND TIME WORKER Height 182.9 cm (6') 04/30/2024 1:05 PM SECOND TIME WORKER Body Mass Index 24.95 04/30/2024 1:05 PM SECOND TIME WORKER Plan of Treatment Health Maintenance Due Date Last Done Comments Colon Cancer Screening-Colonoscopy 1961 Depression Screening 1961 Hepatitis C Screening 1961 Prostate Cancer Screening-PSA 1961 DTaP/Tdap/Td Vaccine (1 - Tdap) 1972 Hepatitis B Screening 09/19/1979 Regular Well Visit/Exam 18-64 09/19/1979 Pneumococcal vaccine <65 (1 of 2 - PCV) 1980 Zoster Vaccine (1 of 2) 09/19/2011 Covid-19 Vaccine ( season) 2024 04/29/2021, 08/24/2020, 07/27/2020 Influenza Vaccine (#1) 2024 Insurance [employer] [place] PREFERRED Care Teams Cap Jewel Plate Assembler Relationship Specialty Start Date End Date Bo Branch DO [address] [facility] [address] [place], [place] [id number] PCP - General Internal Medicine 04/30/24
== END 2024-09-01 10:37 | disposition home or self-care (01) ==
PROVIDERS: PCP Internal Medicine; Visit Provider Internal Medicine
DX: M19.042 Primary osteoarthritis, left hand (principal); M19.041 Primary osteoarthritis, right hand; M85.871 Other specified disorders of bone density and structure, right ankle and foot
CPT/HCPCS: 73120; 73620

== ENCOUNTER 2024-09-02 11:25 | Outpatient (CLI) | payer OTHER, SELFPAY ==
[2024-09-02 12:09] LABS: Basophils Absolute Auto 0.1 K/mm3 (0.0-0.1); Basophils Percent Auto 0.9 % (0.2-1.2); Eosinophils Absolute Auto 0.1 K/mm3 (0-0.3); Eosinophils Percent Auto 1.1 % (0-4.4); Hematocrit 44.8 % (42.0-52.0); Hemoglobin 15.6 g/dL (14.0-18.0); Immature Granulocyte Absolute 0.03 K/mm3 (0.00-0.031); Immature Granulocyte Percent A 0.4 % (0-0.5); Lymphocytes Absolute Auto 1.72 K/mm3 (0.9-3.2); Lymphocytes Percent Auto 23.1 % (18.3-44.2); Mean Corpuscular HGB Conc 34.8 g/dl (32-36); Mean Corpuscular Hemoglobin 34.2 pg (26-34); Mean Corpuscular Volume 98.2 fl (80-100); Mean Platelet Volume 8.3 fl (7.4-10.4); Monocytes Absolute Auto 0.6 K/mm3 (0.1-0.6); Monocytes Percent Auto 7.8 % (2.6-8.5); Neutrophils Percent Auto 66.7 % (45.5-73.1); Platelet Count Result 181 k/mm3 (150-375); Red Blood Count 4.56 M/mm3 (4.6-6.20); White Blood Count 7.5 K/mm3 (4.5-10.0)
[2024-09-02 12:24] LABS: Alanine Aminotransferase 22 U/L (6-50); Albumin Level 4.2 g/dL (3.5-5.1); Alkaline Phosphatase 73 U/L (38-126); Anion Gap 7 mmol/L (4-12); Aspartate Amino Transferase 22 U/L (17-59); Bilirubin,Total 0.9 mg/dL (0.2-1.3); Blood Urea Nitrogen 11 mg/dL (9-20); CRP < 0.5 mg/dL (<1.0); Calcium 9.3 mg/dL (8.4-10.2); Carbon Dioxide 26 mmol/L (22-30); Chloride 96 mmol/L (98-107); Estimated Glomerular Filt Rate > 60; Glucose 173 mg/dL (65-110); Phosphorus 3.4 mg/dL (2.5-4.5); Sodium 129 mmol/L (137-145); Uric Acid 5.2 mg/dL (3.5-8.5)
[2024-09-02 12:27] LABS: Rheumatoid Factor < 12.0 IU/ML (<12)
[2024-09-02 12:44] LABS: Add Urine Microscopic? NO; Appearance Urine Clear (Clear); Bilirubin Urine Negative (Negative); Blood Urine Negative (Negative); Color Urine Yellow (Yellow); Glucose Urine UA Trace mg/dL (Negative); Ketones Urine Negative (Negative); Leukocyte Esterase Ur Negative LEU/UL (Negative); Nitrate Urine Negative (Negative); Protein Urine Negative (Negative); Specific Grav Ur 1.012 (1.001-1.035); pH Urine 7.5 (5.0-9.0)
[2024-09-02 13:09] LABS: Hepatitis B Surface Antigen Negative (Negative)
[2024-09-02 13:15] LABS: HAV RESULT Negative (Negative); Hepatitis B Core IgM Result Negative (Negative)
[2024-09-02 13:26] LABS: Hepatitis B Surface Anti Res Negative; Hepatitis C Virus Antibody Negative (Negative)
--- OUTSIDE RECORDS SUMMARY | 2024-09-02 13:46 | XMS_ITS | Clinical Summary ---
Author Organization [facility] Address [address] [place] [address] Care Team Providers Care Metallurgical Tester Name Role Phone GordyGómezKamarcesar Haas DO Primary Care Provider [phone] Oscar Cedillo MD Unavailable Source Comments [facility],non-owned Affiliates and Associated Physician Practices is amultiple site organization consisting of ambulatory clinics and hospital sitesin [place], [place], [place] and [place]. This disclosure is being madepursuant to the Care Everywhere program and may not contain all information available regarding this patient. Last updated 18.[facility] Allergies No known active allergies Medications * [...] prevention post surg Active Vitamin D, Ergocalciferol, 63347 units CAPS Take by mouth every 30 [...] this topic Medical Devices Implanted Type Area Welding Machine Operator Electron Beam Device Identifier Shelf Expiration Date Model / Serial / Lot Cmnt Bone Djo Srg Cblt 40gm Hvisc Strl Implanted:Qty: 2 on 04/27/2022 by Earle Hopper MD at [facility] Right: Knee [employer] 07/07/2023 600-15-000 / / [id number] Cmpnt Ptlr Std 31mm 3 Pg Kn Ser A Implanted:Qty: 1 on 04/27/2022 by Earle Hopper MD at [facility] Right: Knee [employer] 03/14/2027 [id number] / / [id number] Tray Tib 79mm Kn Cocr I Beam Implanted:Qty: 1 on 04/27/2022 by Earle Hopper MD at [facility] Right: Knee [employer] 01/20/2032 [id number] / / [id number] Cmpnt Fem Kn Rt Cr Cmnt Prm Vngrd Intlk Implanted:Qty: 1 on 04/27/2022 by Earle Hopper MD at [facility] Right: Knee [employer] 03/15/2032 [id number] / / [id number] Brng [id number] Vngrd Arcm Kn Ant Stab Implanted:Qty: 1 on 04/27/2022 by Earle Hopper MD at [facility] Right: Knee [employer] 09/08/2026 [id number] / / [id number] Cmpnt Ptlr Std 31mm 3 Pg Kn Ser A Implanted:Qty: 1 on 11/20/2022 by Earle Hopper MD at [facility] Left: Knee [employer] 09/14/2027 [id number] / / [id number] Brng 81tsx90ss Vngrd Arcm Kn Ant Stab Implanted:Qty: 1 on 11/20/2022 by Earle Hopper MD at [facility] Left: Knee [employer] 09/22/2027 [id number] / / [id number] Cmnt Bone Plc R 40gm Grn Implanted:Qty: 1 on 11/20/2022 by Earle Hopper MD at [facility] Left: Knee [employer] 04/10/2025 [id number] / / [id number] Cmnt Bone Plc R 40gm Grn Implanted:Qty: 1 on 11/20/2022 by Earle Hopper MD at [facility] Left: Knee [employer] 12/08/2024 [id number] / / [id number] Cmpnt Fem Kn Lt Cr Cmnt Prm Vngrd Intlk 67.5 Mm Implanted:Qty: 1 on 11/20/2022 by Earle Hopper MD at [facility] Left: Knee [employer] 10/04/2032 [id number] / / [id number] Tray Tib 79mm Kn Cocr I Beam Implanted:Qty: 1 on 11/20/2022 by Earle Hopper MD at [facility] Left: Knee [employer] 09/05/2032 [id number] / / [id number] Procedures Procedure Name Priority Date/Time Associated Diagnosis Comments GLUCOSE - POINT OF CARE Routine 11/20/2022 8:09 AM CDT from Last 3 Months or Most Recently Relevant to Health Maintenance Results * (ABNORMAL) GLUCOSE - POINT OF CARE (11/20/2022 8:09 AM CDT) Pathologist [facility] Glucose WB/POC 149(H) 70 - 106 mg/dL 11/20/2022 8:10 AM CDT [facility] Specimen Type Venous 11/20/2022 8:10 AM CDT [facility] Blood BLOOD SPECIMEN / Unknown 11/20/2022 8:09 AM CDT 11/20/2022 8:10 AM CDT Earle Hopper MD LAB - POINT OF CARE ORDERABLES [facility] [address] [place] [address] from Last 3 Months or Most Recently [...] 2:54 PM 04/28/2022 3:02 PM Care Teams Metallurgical Tester Relationship Specialty Start Date End Date Kamar Kaminski DO [address] [place] [address] PCP - General Internal Medicine 11/08/21 Oscar Cedillo MD [address] [place] [address] Cardiovascular Disease 04/12/22
--- OUTSIDE RECORDS SUMMARY | 2024-09-02 13:46 | XMS_ITS | Clinical Summary ---
Author Organization [facility] Address [address] [place] [id number] Phone Care Team Providers Care Director [facility] Name Role Phone Kamar Kaminski DO Primary Care Provider [phone] Allergies No known active allergies Medications Medication [...] Comments Influenza Vaccine (#1) 2024 Care Teams Director [facility] Relationship Specialty Start Date End Date Kamar Kaminski DO [address] [facility] [address] [place] [address] PCP - General Internal Medicine 09/23/18
--- OUTSIDE RECORDS SUMMARY | 2024-09-02 13:46 | XMS_ITS | Clinical Summary ---
Author Organization [facility] Address [address] [place] [address] Care Team Providers Care Ophthalmologist Retina Specialist Name Role Phone Unavailable Primary Care Provider Unavailabl e Immunizations Immunization Administration Dates Next Due Covid-19, Mrna, Lnp-s, PF, 5 0 mcg/0.25 mL dose (Moderna) 04/29/2021 Social History Tobacco Use Types Packs/Day Years Used Date Smoking Tobacco: Never Assessed Sex and Gender Information Value Date Recorded Sex Assigned at Not on file Legal Sex Male 10:49 AM POLICE GUARD Gender Identity Not on file Sexual Orientation [...]
--- OUTSIDE RECORDS SUMMARY | 2024-09-02 13:46 | XMS_ITS | Clinical Summary ---
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 Gender Identity Not on file Sexual Orientation Not on file Obstetrics History Last Filed Vital Signs Vital Sign Reading Time Taken Comments Blood Pressure 120/74 04/30/2024 1:05 PM FRYER OPERATOR Pulse 75 04/30/2024 1:05 PM FRYER OPERATOR Temperature - - Respiratory Rate - - Oxygen Saturation 96% 04/30/2024 1:05 PM FRYER OPERATOR Inhaled Oxygen Concentration - - Weight 83.5 kg (184 lb) 04/30/2024 1:05 PM FRYER OPERATOR Height 182.9 cm (6') 04/30/2024 1:05 PM FRYER OPERATOR Body Mass Index 24.95 04/30/2024 1:05 PM FRYER OPERATOR Plan of Treatment Health Maintenance Due Date [...] 2024 Insurance [employer] [place] PREFERRED Care Teams Head Filter Tank Tender Helper Relationship Specialty Start Date End Date Bo Branch DO [address] [facility] [address] [place], [place] [id number] PCP - General Internal Medicine 04/30/24
--- OUTSIDE RECORDS SUMMARY | 2024-09-02 13:46 | XMS_ITS | Referral Summary ---
Author Organization [facility] [address] Address [address] [place] [address] Care Team Providers Care Gasser Machine Operator Name Role Phone Bo Branch DO Primary Care Provider [phone] Allergies No known active allergies Medications metoprolol [...] on file Legal Sex Male 9:19 AM MANAGER PERFORMANCE IMPROVEMENT Gender Identity Not on file Sexual Orientation Not on file Last Filed Vital Signs Vital Sign Reading Time Taken Comments Blood Pressure 120/74 04/30/2024 1:05 PM MANAGER PERFORMANCE IMPROVEMENT Pulse 75 04/30/2024 1:05 PM MANAGER PERFORMANCE IMPROVEMENT Temperature - - Respiratory Rate - - Oxygen Saturation 96% 04/30/2024 1:05 PM MANAGER PERFORMANCE IMPROVEMENT Inhaled Oxygen Concentration - - Weight 83.5 kg (184 lb) 04/30/2024 1:05 PM MANAGER PERFORMANCE IMPROVEMENT Height 182.9 cm (6') 04/30/2024 1:05 PM MANAGER PERFORMANCE IMPROVEMENT Body Mass Index 24.95 04/30/2024 1:05 PM MANAGER PERFORMANCE IMPROVEMENT Plan of Treatment Not on file Insurance [employer] [place] PREFERR[place] Care Teams Gasser Machine Operator Relationship Specialty Start Date End Date Bo Branch DO [address] [address] PCP - General Internal Medicine 04/30/24
--- OUTSIDE RECORDS SUMMARY | 2024-09-02 13:46 | XMS_ITS | Clinical Summary ---
Author Organization [facility] Address [address] [place] [address] Care Team Providers Care Audit Analyst Name Role Phone Unavailable Primary Care Provider [...] complete this [place] [id number]
[2024-09-02 14:52] LABS: Erythrocyte Sedimentation Rate 1 mm/hr (0-20)
[2024-09-04 13:24] LABS: Angiotensin Converting Enzyme <5 U/L (9-67)
[2024-09-04 14:29] LABS: Cyclic Citrullinated Peptide <16 UNITS
[2024-09-04 18:38] LABS: NIL 0.03 IU/mL; Quantiferon TB Plus, 1T NEGATIVE (NEGATIVE)
== END 2024-09-02 11:26 | disposition home or self-care (01) ==
PROVIDERS: PCP Internal Medicine; Visit Provider Internal Medicine
DX: M06.9 Rheumatoid arthritis, unspecified (principal)
CPT/HCPCS: 36415; 80053; 80074; 81003; 82164; 84100; 84443; 84550; 85025; 85652; 86038; 86039; 86140; 86200; 86430; 86480; 86706

== ENCOUNTER 2025-01-09 09:23 | Outpatient (CLI) | payer OTHER, SELFPAY ==
--- OUTSIDE RECORDS SUMMARY | 2025-01-09 09:31 | XMS_ITS | Clinical Summary ---
Author Organization 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 Gender Identity Not on file Sexual Orientation Not on file Plan of Treatment Health Maintenance Due Date Last Done Comments Hepatitis C Virus (HCV) Screening 1961 TdaP Immunization 1961 Cologuard 2006 Colonoscopy 2006 Colorectal Cancer Screening 2006 Immunochemical Fecal Occult Blood 2006 Pneumococcal Immunization (5 0+ years) (1 of 1 - PCV) 09/19/2011 Zoster Immunization (1 of 2) 09/19/2011 SARS-COV-2 Immunization ( - season) 2024 04/29/2021, 08/24/2020, 07/27/2020 Influenza Immunization (#1) 2025 Respiratory Syncytial Virus (RSV) Immunization (Adult) (1 - 1-dose 75+ series) 2036 Hepatitis B Immunization Aged Out No longer eligible based on patient's age to complete this topic Human Papillomavirus (HPV) Immunization Aged Out No longer eligible b ased on patient's age to complete this topic Meningococcal Immunization (ACWY) Aged Out No longer eligible b ased on patient's age to complete this topic Rotavirus Immunization Aged Out No lo nger eligible based on patient's age to complete this topic
--- OUTSIDE RECORDS SUMMARY | 2025-01-09 09:31 | XMS_ITS | Clinical Summary ---
Author Organization [facility] Address [address] [place] [address] Phone Care Team Providers Care Filler Machine Operator Name Role Phone Kamar Kaminski DO Primary Care Provider [phone] Allergies No known active allergies Medications metoprolol succinate XL (TOPROL-XL) 100 MG 24 hr tablet 1 daily 0 09/24/2017 Act velia felodipine (PLENDIL) 5 MG 24 hr tablet 1 daily 0 02/13/2018 Active aspirin (ASPIR-LOW) 81 MG EC tablet 1 daily 0 09/22/2017 Active lisinopril (PRINIVIL,ZESTRI L) 40 MG tablet 1 daily 0 09/24/2017 Act velia Active Problems Problem Noted Date Diagnosed Date [...] at Not on file Legal Sex Male 8:55 AM MST Gender Identity Not on file Sexual Orientation [...] Date Last Done Comments Influenza Vaccine (#1) 2025 Insurance [facility] MEDICARE ADVANTAGE Care Teams Filler Machine Operator Relationship Specialty Start Date End Date Kamar Kaminski DO [address] [place] [address] PCP - General Internal Medicine 09/23/18
--- OUTSIDE RECORDS SUMMARY | 2025-01-09 09:31 | XMS_ITS | Clinical Summary ---
Author Organization [facility] Address [address] [place] [address] Care Team Providers Care Master Fire Control Technician Name Role Phone Unavailable Primary Care Provider [...] 2006 ZOSTER VACCINE (1 of 2) 09/19/2011 COVID-19 Vaccine (2 - season) 2024 INFLUENZA VACCINE (#1) 2025 RSV VACCINE (60+ or ) (1 - 1-dose 75+ series) 2036 Insurance [employer]
--- OUTSIDE RECORDS SUMMARY | 2025-01-09 09:31 | XMS_ITS | Referral Summary ---
Author Organization [facility] [address] Address [address] [place] [address] Care Team Providers Care Shot Polisher Name Role Phone Bo Branch Primary Care Provider [phone] Allergies No known active allergies Medications metoprolol XL (TOPROL-XL) 100 mg 24 hr tablet Take 1 tablet (100 mg total) by mouth daily 10/28/2019 Active Eliquis 5 mg tablet Take 1 tablet (5 mg total) by mouth 2 (two) times a day 11/04/2019 Active lisinopriL (PRINIVIL,ZESTR [place]) 20 mg tablet Take 1 tablet (20 mg total) by mouth daily 14 tablet 07/10/2024 6 Active lisinopriL (PRINIVIL,ZESTR [place]) 20 mg tablet TAKE 1 TABLET DAILY 90 tablet 1 09/22/2024 Active spironolactone (ALDACTONE) 25 mg tablet Take 1 tablet (25 mg total) by mouth daily 90 tablet 2 10/08/2024 Active dilTIAZem XR (DILT-XR) 240 mg 24 hr capsule Take 1 capsule (240 mg total) by mouth daily 90 capsule 2 10/08/2024 Active dilTIAZem XR (CARDIZEM CD,DILACOR XR) 240 mg 24 hr capsule Take 1 capsule (240 mg total) by mouth daily 14 capsule 10/09/2024 6 Active Active Problems No known active problems Social [...] on file 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 Gender Identity Not on file Sexual Orientation Not on file Last Filed Vital Signs Vital Sign Reading Time Taken Comments Blood Pressure 120/74 04/30/2024 1:05 PM FLAT FOLDING MACHINE OPERATOR Pulse 75 04/30/2024 1:05 PM FLAT FOLDING MACHINE OPERATOR Temperature - - Respiratory Rate - - Oxygen Saturation 96% 04/30/2024 1:05 PM FLAT FOLDING MACHINE OPERATOR Inhaled Oxygen Concentration - - Weight 83.5 kg (184 lb) 04/30/2024 1:05 PM FLAT FOLDING MACHINE OPERATOR Height 182.9 cm (6') 04/30/2024 1:05 PM FLAT FOLDING MACHINE OPERATOR Body Mass Index 24.95 04/30/2024 1:05 PM FLAT FOLDING MACHINE OPERATOR Plan of Treatment Not on file Insurance [employer] [place] Care Teams Shot Polisher Relationship Specialty Start Date End Date Bo Branch DO [address] [facility] [address] [place] [address] PCP - General Internal Medicine 04/30/24
--- OUTSIDE RECORDS SUMMARY | 2025-01-09 09:32 | XMS_ITS | Clinical Summary ---
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 Gender Identity Not on file Sexual Orientation Not on file Obstetrics History Last Filed Vital Signs Vital Sign Reading Time Taken Comments Blood Pressure 120/74 04/30/2024 1:05 PM GUEST EXPERIENCE CAPTAIN Pulse 75 04/30/2024 1:05 PM GUEST EXPERIENCE CAPTAIN Temperature - - Respiratory Rate - - Oxygen Saturation 96% 04/30/2024 1:05 PM GUEST EXPERIENCE CAPTAIN Inhaled Oxygen Concentration - - Weight 83.5 kg (184 lb) 04/30/2024 1:05 PM GUEST EXPERIENCE CAPTAIN Height 182.9 cm (6') 04/30/2024 1:05 PM GUEST EXPERIENCE CAPTAIN Body Mass Index 24.95 04/30/2024 1:05 PM GUEST EXPERIENCE CAPTAIN Plan of Treatment Health Maintenance Due Date Last Done Comments Colon Cancer Screening-Colonoscopy 1961 Depression Screening 1961 Hepatitis C Screening 1961 Prostate Cancer Screening-PSA 1961 DTaP/Tdap/Td Vaccine (1 - Tdap) 1972 Hepatitis B Screening 09/19/1979 Regular Well Visit/Exam 18-64 09/19/1979 Pneumococcal vaccine <65 (1 of 2 - PCV) 1980 Zoster Vaccine (1 of 2) 09/19/2011 Covid-19 Vaccine ( - season) 2024 04/29/2021, 08/24/2020, 07/27/2020 Influenza Vaccine (#1) 2025 Insurance [employer] [place] PREFERRED Care Teams Button Maker Relationship Specialty Start Date End Date Bo Branch DO [address] [address] PCP - General Internal Medicine 04/30/24
--- OUTSIDE RECORDS SUMMARY | 2025-01-09 09:32 | XMS_ITS | Clinical Summary ---
Author Organization [facility] Address [address] [place] [address] Care Team Providers Care Butcher Head Name Role Phone JoleneGómez dorseycesar Haas DO Primary Care Provider [phone] Oscar Cedillo MD Unavailable Source Comments [facility],non-owned Affiliates and Associated Physician Practices is amultiple site organization consisting of ambulatory clinics and hospital sitesin [place], [place], [place] and [place]. This disclosure is being madepursuant to the Care Everywhere program and may not contain all information available regarding this patient. Last updated 18.[facility] Allergies No known active allergies Medications * Be aware that medications may not be up to date on this document. Alwaysverify current medications with the patient. lisinopril (Prinivil; Zestril) 20 MG tabletIndicati ons:Hypertensi on Take 1 tablet by mouth once daily Reasons: High Blood Pressure Disorder Active metoprolol succinate XL 24hr (TOPROL XL) 100 MG tablet Take 1 (one) tablet by mouth once daily 10/04/19 22 Active spironolactone (ALDACTONE) 25 MG tablet Take 1 (one) tablet by mouth once daily 11/05/19 22 Active ASPIRIN 81 POIndications: clot prevention post surg Take by mouth once daily Reasons: clot prevention post surg Active Vitamin D, Ergocalciferol , 92137 units CAPS Take by mouth every 30 days Active dilTIAZem SR 24hr (Dilacor XR) 240 MG capsule Take 1 (one) capsule by mouth once daily 10/12/19 23 Active Eliquis 5 MG tabletIndicati ons:Thromboemb olism secondary to Atrial Fibrillation,2 .5 mg twice a day for 3 weeks then resume 5mg twice daily Take 1 tablet by mouth 2 times daily Reasons: Thromboembolism secondary to Atrial Fibrillation, 2.5 mg twice a day for 3 weeks then resume 5mg twice daily 06/30/19 23 Active Active Problems Problem Noted Date Diagnosed Date Primary osteoarthritis of right knee 11/09/2021 Essential (primary) hypertension 09/24/2017 Family History Medical History Relation Name Comments Diabetes; unknown type Brother Relation Name Status Comments Brother Social History Tobacco Use Types Packs/Day Years Used Date Smoking Tobacco: Every Day Cigarettes 1.5 47.6 Started: 1976 Smokeless Tobacco: Never Alcohol Use [...] at Not on file Legal Sex Male 9:28 AM CDT Gender Identity Not on file [...] 7:54 AM CDT Height 180.3 cm (5' 11) 11/20/2022 7:54 AM CDT Body Mass Index [...] 50+ (1 of 2 - PCV) 1980 ZOSTER VACCINE (1 of 2) 09/19/2011 COVID-19 VACCINE (4 - season) 2024 04/29/2021, 08/24/2020, 07/27/2020 DEPRESSION SCREENING 06/11/2024 INFLUENZA VACCINE (#1) 2025 SCREENING FOR DIABETES 11/20/2025 3, 10/18/2022, 10/18/2022, Additional history exists LIPID TESTING [...] this topic Medical Devices Implanted Type Area Roller Embosser Device Identifier Shelf Expiration Date Model / Serial / Lot Cmnt Bone Djo Srg Cblt 40gm Hvisc Strl Implanted:Qty: 2 on 04/27/2022 by Earle Hopper MD at [facility] Right: Knee [employer] 07/07/2023 600-15-000 / / [id number] Cmpnt Ptlr Std 31mm 3 Pg Kn Ser A Implanted:Qty: 1 on 04/27/2022 by Earle Hopper MD at [facility] Right: Knee [employer] 03/14/2027 [id number] / / [id number] Tray Tib 79mm Kn Cocr I Beam Implanted:Qty: 1 on 04/27/2022 by Earle Hopper MD at [facility] Right: Knee [employer] 01/20/2032 [id number] / / [id number] Cmpnt Fem Kn Rt Cr Cmnt Prm Vngrd Intlk Implanted:Qty: 1 on 04/27/2022 by Earle Hopper MD at [facility] Right: Knee [employer] 03/15/2032 [id number] / / [id number] Brng [id number] Vngrd Arcm Kn Ant Stab Implanted:Qty: 1 on 04/27/2022 by Earle Hopper MD at [facility] Right: Knee [employer] 09/08/2026 [id number] / / [id number] Cmpnt Ptlr Std 31mm 3 Pg Kn Ser A Implanted:Qty: 1 on 11/20/2022 by Earle Hopper MD at [facility] Left: Knee [employer] 09/14/2027 [id number] / / [id number] Brng [id number] Vngrd Arcm Kn Ant Stab Implanted:Qty: 1 on 11/20/2022 by Earle Hopper MD at [facility] Left: Knee [employer] 09/22/2027 [id number] / / [id number] Cmnt Bone Plc R 40gm Grn Implanted:Qty: 1 on 11/20/2022 by Earle Hopper MD at [facility] Left: Knee [employer] 04/10/2025 [id number] / / [id number] Cmnt Bone Plc R 40gm Grn Implanted:Qty: 1 on 11/20/2022 by Earle Hopper MD at [facility] Left: Knee [employer] 12/08/2024 [id number] / / [id number] Cmpnt Fem Kn Lt Cr Cmnt Prm Vngrd Intlk 67.5 Mm Implanted:Qty: 1 on 11/20/2022 by Earle Hopper MD at [facility] Left: Knee [employer] 10/04/2032 [id number] / / [id number] Tray Tib 79mm Kn Cocr I Beam Implanted:Qty: 1 on 11/20/2022 by Earle Hopper MD at [facility] Left: Knee [employer] 09/05/2032 [id number] / / [id number] Procedures Procedure Name Priority Date/Time Associated Diagnosis Comments GLUCOSE - POINT OF CARE Routine 11/20/2022 8:09 AM CDT from Last 3 Months or Most Recently Relevant to Health Maintenance Results * (ABNORMAL) GLUCOSE - POINT OF CARE (11/20/2022 8:09 AM CDT) Pathologist [facility] Glucose WB/POC 149(H) 70 - 106 mg/dL 11/20/2022 8:10 AM CDT [facility] Specimen Type Venous 11/20/2022 8:10 AM CDT [facility] Blood BLOOD SPECIMEN / Unknown 11/20/2022 8:09 AM CDT 11/20/2022 8:10 AM CDT Earle Hopper MD LAB - POINT OF CARE ORDERABLE S Final Result [facility] [address] [place] [address] from Last 3 Months or Most Recently Relevant to Health Maintenance Insurance ANTH Advance Directives * Full Code (Latest Code [...] 2:54 PM 04/28/2022 3:02 PM Care Teams Butcher Head Relationship Specialty Start Date End Date Kamar Kaminski DO [address] [place] [address] PCP - General Internal Medicine 11/08/21 Oscar Cedillo MD [address] [place] [address] Cardiovascular Disease 04/12/22
[2025-01-09 09:55] LABS: Hematocrit 46.8 % (42.0-52.0); Hemoglobin 16.0 g/dL (14.0-18.0); Immature Granulocyte Percent A 0.8 % (0-0.5); Lymphocytes Absolute Auto 1.31 K/mm3 (0.9-3.2); Mean Corpuscular HGB Conc 34.2 g/dl (32-36); Mean Corpuscular Hemoglobin 34.5 pg (26-34); Mean Corpuscular Volume 100.9 fl (80-100); Nucleated Red Blood Cells Absolute Auto 0.000 K/mm3 (0.0-0.012); Nucleated Red Blood Cells Perc 0.0 % (0.0-0.2); Platelet Count Result 137 k/mm3 (150-375); Red Blood Count 4.64 M/mm3 (4.6-6.20); White Blood Count 6.2 K/mm3 (4.5-10.0)
[2025-01-09 10:08] LABS: Add Urine Microscopic? NO; Appearance Urine Clear (Clear); Glucose Urine UA 1+ mg/dL (Negative); Leukocyte Esterase Ur Negative LEU/UL (Negative); Nitrate Urine Negative (Negative); Specific Grav Ur 1.009 (1.001-1.035)
[2025-01-09 10:22] LABS: Alanine Aminotransferase 22 U/L (6-50); Albumin Level 4.0 g/dL (3.5-5.1); Alkaline Phosphatase 61 U/L (38-126); Anion Gap 7 mmol/L (4-12); Aspartate Amino Transferase 27 U/L (17-59); Bilirubin,Total 1.0 mg/dL (0.2-1.3); Blood Urea Nitrogen 8 mg/dL (9-20); CRP < 0.5 mg/dL (<1.0); Calcium 9.1 mg/dL (8.4-10.2); Carbon Dioxide 25 mmol/L (22-30); Chloride 97 mmol/L (98-107); Estimated Glomerular Filt Rate > 60; Glucose 206 mg/dL (65-110); Potassium 4.4 mmol/L (3.4-5.0); Sodium 129 mmol/L (137-145); Total Protein 6.7 g/dL (6.3-8.2)
== END 2025-01-09 09:24 | disposition home or self-care (01) ==
LOC: ANHLAB 09:26
PROVIDERS: PCP Internal Medicine; Visit Provider Internal Medicine
DX: M06.09 Rheumatoid arthritis without rheumatoid factor, multiple sites (principal); Z79.899 Other long term (current) drug therapy
CPT/HCPCS: 36415; 80053; 81003; 84100; 85025; 85652; 86140

== ENCOUNTER 2025-02-20 14:44 | Outpatient (CLI) | payer OTHER, SELFPAY ==
--- NOTE | ~2025-02-20 | CT_ITS ---
EXAMINATION:CT diagnostic chest wo con DATE: 02/20/2025 15:04 INDICATION: Other nonspecific abnormal finding of lung field. TECHNIQUE: Computed tomography (CT) of the chest was performed without intravenous contrast. Automated exposure control and iterative reconstruction technique were employed. The dose-length product (DLP) was 275.70 mGy-cm. COMPARISON: Chest CT 08/07/2024, 01/21/2023 FINDINGS: There is mild emphysema. There is a 2.8 x 3.6 cm area of crazy paving in right lower lobe, worsened from 2.3 x 1.8 cm on 08/07/2024. There is no pleural effusion. The heart size is normal. There are coronary artery calcifications. No pericardial effusion. There is a 2.1 cm cyst in right kidney. There is a 2.4 cm hypodense mass in left adrenal gland, consistent with an adenoma. There is mild thoracic spondylosis. IMPRESSION: 1. Lung RADS category 4A: Suspicious. Consider low dose noncontrast chest CT in 3 months. Reviewed, dictated and finalized at location E.
--- OUTSIDE RECORDS SUMMARY | 2025-02-20 15:23 | XMS_ITS | Clinical Summary ---
Author Organization [facility] Address [address] [place] [address] Care Team Providers Care Instructional Services Librarian Name Role Phone JoleneGómez dorseycesar Haas DO Primary Care Provider [phone] Oscar Cedillo MD Unavailable Source Comments [facility],non-owned Affiliates and Associated Physician Practices is amultiple site organization consisting of ambulatory clinics and hospital sitesin [place], [place] and [place]. This disclosure is being madepursuant to the Care Everywhere program and may not contain all information available regarding this patient. Last updated 18.[facility] Allergies No known active allergies Medications * [...] post surg Active Vitamin D, Ergocalciferol , 06650 units CAPS Take by mouth every 30 [...] Date Smoking Tobacco: Every Day Cigarettes 1.5 47.7 Started: 1976 Smokeless Tobacco: Never Alcohol Use [...] this topic Medical Devices Implanted Type Area Conciliation Court Judge Device Identifier Shelf Expiration Date Model / Serial / Lot Cmnt Bone Djo Srg Cblt 40gm Hvisc Strl Implanted:Qty: 2 on 04/27/2022 by Earle Hopper MD at [facility] Right: Knee [employer] 07/07/2023 600-15-000 / / [id number] Cmpnt Ptlr Std 31mm 3 Pg Kn Ser A Implanted:Qty: 1 on 04/27/2022 by Earle Hopper MD at [facility] Right: Knee [employer] 03/14/2027 [id number] / / [id number] Tray Tib 79mm Kn Cocr I Beam Implanted:Qty: 1 on 04/27/2022 by Earle Hopper MD at [facility] Right: Knee [employer] 01/20/2032 [id number] / / [id number] Cmpnt Fem Kn Rt Cr Cmnt Prm Vngrd Intlk Implanted:Qty: 1 on 04/27/2022 by Earle Hopper MD at [facility] Right: Knee [employer] 03/15/2032 [id number] / / [id number] Brng [id number] Vngrd Arcm Kn Ant Stab Implanted:Qty: 1 on 04/27/2022 by Earle Hopper MD at [facility] Right: Knee [employer] 09/08/2026 [id number] / / [id number] Cmpnt Ptlr Std 31mm 3 Pg Kn Ser A Implanted:Qty: 1 on 11/20/2022 by Earle Hopper MD at [facility] Left: Knee [employer] 09/14/2027 [id number] / / [id number] Brng 51trf27op Vngrd Arcm Kn Ant Stab Implanted:Qty: 1 on 11/20/2022 by Earle Hopper MD at [facility] Left: Knee [employer] 09/22/2027 [id number] / / [id number] Cmnt Bone Plc R 40gm Grn Implanted:Qty: 1 on 11/20/2022 by Earle Hopper MD at [facility] Left: Knee [employer] 04/10/2025 [id number] / / [id number] Cmnt Bone Plc R 40gm Grn Implanted:Qty: 1 on 11/20/2022 by Earle Hopper MD at [facility] Left: Knee [employer] 12/08/2024 [id number] / / [id number] Cmpnt Fem Kn Lt Cr Cmnt Prm Vngrd Intlk 67.5 Mm Implanted:Qty: 1 on 11/20/2022 by Earle Hopper MD at [facility] Left: Knee [employer] 10/04/2032 [id number] / / [id number] Tray Tib 79mm Kn Cocr I Beam Implanted:Qty: 1 on 11/20/2022 by Earle Hopper MD at [facility] Left: Knee [employer] 09/05/2032 [id number] / / [id number] Procedures Procedure Name Priority Date/Time Associated Diagnosis [...] CARE ORDERABLE S Final Result [facility] [address] [place] [address] from Last 3 Months or Most Recently [...] 2:54 PM 04/28/2022 3:02 PM Care Teams Instructional Services Librarian Relationship Specialty Start Date End Date Kamar Kaminski DO [address] [place] [address] PCP - General Internal Medicine 11/08/21 Oscar Cedillo MD [address] [place] [address] Cardiovascular Disease 04/12/22
--- OUTSIDE RECORDS SUMMARY | 2025-02-20 15:23 | XMS_ITS | Clinical Summary ---
Author Organization [facility] Address [address] [place] [address] Care Team Providers Care Peoplesoft Hcm Developer Name Role Phone Unavailable Primary Care Provider [...] (1 of 2) 09/19/2011 INFLUENZA VACCINE (#1) 2025 COVID-19 Vaccine (2 - season) 2025 RSV VACCINE (60+ or ) (1 - 1-dose 75+ series) 2036 Insurance [employer]
--- OUTSIDE RECORDS SUMMARY | 2025-02-20 15:23 | XMS_ITS | Clinical Summary ---
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
--- OUTSIDE RECORDS SUMMARY | 2025-02-20 15:23 | XMS_ITS | Clinical Summary ---
Author Organization [facility] Address [address] [place] [address] Phone Care Team Providers Care Medical Imaging Tech Name Role Phone Kamar Kaminski DO Primary Care Provider [phone] Allergies No known active allergies Medications metoprolol [...] Done Comments Influenza Vaccine (#1) 2025 Insurance [facility] MEDICARE ADVANTAGE Care Teams Medical Imaging Tech Relationship Specialty Start Date End Date Kamar Kaminski DO [address] [facility] [[email or web address] [address] [place] [address] PCP - General Internal Medicine 09/23/18
--- OUTSIDE RECORDS SUMMARY | 2025-02-20 15:23 | XMS_ITS | Clinical Summary ---
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 Gender Identity Not on file Sexual Orientation Not on file Obstetrics History Last Filed Vital Signs Vital Sign Reading Time Taken Comments Blood Pressure 120/74 04/30/2024 1:05 PM COLOR WEIGHER Pulse 75 04/30/2024 1:05 PM COLOR WEIGHER Temperature - - Respiratory Rate - - Oxygen Saturation 96% 04/30/2024 1:05 PM COLOR WEIGHER Inhaled Oxygen Concentration - - Weight 83.5 kg (184 lb) 04/30/2024 1:05 PM COLOR WEIGHER Height 182.9 cm (6') 04/30/2024 1:05 PM COLOR WEIGHER Body Mass Index 24.95 04/30/2024 1:05 PM COLOR WEIGHER Plan of Treatment Health Maintenance Due Date Last Done Comments Colon Cancer Screening-Colonoscopy 1961 Depression Screening 1961 Hepatitis C Screening 1961 Prostate Cancer Screening-PSA 1961 DTaP/Tdap/Td Vaccine (1 - Tdap) 1972 Hepatitis B Screening 09/19/1979 Regular Well Visit/Exam 18-64 09/19/1979 Pneumococcal vaccine <65 (1 of 2 - PCV) 1980 Zoster Vaccine (1 of 2) 09/19/2011 Covid-19 Vaccine ( - season) 2025 04/29/2021, 08/24/2020, 07/27/2020 Influenza Vaccine (#1) 2025 Insurance [employer] [place] PREFERRED Care Teams Six Pack Packer Relationship Specialty Start Date End Date Bo Branch DO PCP - General Internal Medicine 04/30/24
== END 2025-02-20 14:45 | disposition home or self-care (01) ==
PROVIDERS: PCP Internal Medicine; Visit Provider Internal Medicine
DX: R91.8 Other nonspecific abnormal finding of lung field (principal)
CPT/HCPCS: 71250

== ENCOUNTER 2025-02-26 10:30 | Outpatient (CLI) | payer OTHER, SELFPAY ==
--- OUTSIDE RECORDS SUMMARY | 2025-02-26 11:11 | XMS_ITS | Clinical Summary ---
Author Organization [facility] Address [address] [place] [address] Care Team Providers Care Building Architect Name Role Phone JoleneGómez dorseycesar Haas DO Primary Care Provider [phone] Oscar Cedillo MD Unavailable Source Comments [facility],non-owned Affiliates and Associated Physician Practices is amultiple site organization consisting of ambulatory clinics and hospital sitesin [place], [place], [place] and [place]. This disclosure is being madepursuant to the Care Everywhere program and may not contain all information available regarding this patient. Last updated 18.[facility] Allergies No known active allergies Medications * [...] post surg Active Vitamin D, Ergocalciferol , 04235 units CAPS Take by mouth every 30 [...] 1980 ZOSTER VACCINE (1 of 2) 09/19/2011 DEPRESSION SCREENING 06/11/2024 COVID-19 VACCINE ( - season) 2025 04/29/2021, 08/24/2020, 07/27/2020 INFLUENZA VACCINE (#1) 2025 SCREENING FOR DIABETES [...] this topic Medical Devices Implanted Type Area Legal Transcriptionist Device Identifier Shelf Expiration Date Model / Serial / Lot Cmnt Bone Djo Srg Cblt 40gm Hvisc Strl Implanted:Qty: 2 on 04/27/2022 by Earle Hopper MD at [facility] Right: Knee [employer] 07/07/2023 600-15-000 / / [id number] Cmpnt Ptlr Std 31mm 3 Pg Kn Ser A Implanted:Qty: 1 on 04/27/2022 by Earle Hopper MD at [facility] Right: Knee [employer] 03/14/2027 [id number] / / [id number] Tray Tib 79mm Kn Cocr I Beam Implanted:Qty: 1 on 04/27/2022 by Earle Hopper MD at [facility] Right: Knee [employer] 01/20/2032 [id number] / / [id number] Cmpnt Fem Kn Rt Cr Cmnt Prm Vngrd Intlk Implanted:Qty: 1 on 04/27/2022 by Earle Hopper MD at [facility] Right: Knee [employer] 03/15/2032 [id number] / / [id number] Brng [id number] Vngrd Arcm Kn Ant Stab Implanted:Qty: 1 on 04/27/2022 by Earle Hopper MD at [facility] Right: Knee [employer] 09/08/2026 [id number] / / [id number] Cmpnt Ptlr Std 31mm 3 Pg Kn Ser A Implanted:Qty: 1 on 11/20/2022 by Earle Hopper MD at [facility] Left: Knee [employer] 09/14/2027 [id number] / / [id number] Brng [id number] Vngrd Arcm Kn Ant Stab Implanted:Qty: 1 on 11/20/2022 by Earle Hopper MD at [facility] Left: Knee [employer] 09/22/2027 [id number] / / [id number] Cmnt Bone Plc R 40gm Grn Implanted:Qty: 1 on 11/20/2022 by Earle Hopper MD at [facility] Left: Knee [employer] 04/10/2025 [id number] / / [id number] Cmnt Bone Plc R 40gm Grn Implanted:Qty: 1 on 11/20/2022 by Earle Hopper MD at [facility] Left: Knee [employer] 12/08/2024 [id number] / / [id number] Cmpnt Fem Kn Lt Cr Cmnt Prm Vngrd Intlk 67.5 Mm Implanted:Qty: 1 on 11/20/2022 by Earle Hopper MD at [facility] Left: Knee [employer] 10/04/2032 [id number] / / [id number] Tray Tib 79mm Kn Cocr I Beam Implanted:Qty: 1 on 11/20/2022 by Earle Hopper MD at [facility] Left: Knee [employer] 09/05/2032 [id number] / / [id number] Procedures Procedure Name Priority Date/Time Associated Diagnosis Comments GLUCOSE - POINT OF CARE Routine 11/20/2022 8:09 AM CDT from Last 3 Months or Most Recently Relevant to Health Maintenance Results * (ABNORMAL) GLUCOSE - POINT OF CARE (11/20/2022 8:09 AM CDT) Pathologist [facility] Glucose WB/POC 149(H) 70 - 106 mg/dL 11/20/2022 8:10 AM CDT [facility] Specimen Type Venous 11/20/2022 8:10 AM CDT [facility] Blood BLOOD SPECIMEN / Unknown 11/20/2022 8:09 AM CDT 11/20/2022 8:10 AM CDT Earle Hopper MD LAB - POINT OF CARE ORDERABLE S Final Result [facility] [address] [place] [address] from Last 3 Months or Most Recently [...] 2:54 PM 04/28/2022 3:02 PM Care Teams Building Architect Relationship Specialty Start Date End Date Kamar Kaminski DO [address] [place] [address] PCP - General Internal Medicine 11/08/21 Oscar Cedillo MD [address] [place] [address] Cardiovascular Disease 04/12/22
--- OUTSIDE RECORDS SUMMARY | 2025-02-26 11:11 | XMS_ITS | Clinical Summary ---
Author Organization [facility] Address [address] [place] [address] Care Team Providers Care Technical Maintenance Technician Name Role Phone Unavailable Primary Care [...]
--- OUTSIDE RECORDS SUMMARY | 2025-02-26 11:11 | XMS_ITS | Clinical Summary ---
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 Gender Identity Not on file Sexual Orientation Not on file Obstetrics History Last Filed Vital Signs Vital Sign Reading Time Taken Comments Blood Pressure 120/74 04/30/2024 1:05 PM SENIOR CONSTRUCTION ESTIMATOR Pulse 75 04/30/2024 1:05 PM SENIOR CONSTRUCTION ESTIMATOR Temperature - - Respiratory Rate - - Oxygen Saturation 96% 04/30/2024 1:05 PM SENIOR CONSTRUCTION ESTIMATOR Inhaled Oxygen Concentration - - Weight 83.5 kg (184 lb) 04/30/2024 1:05 PM SENIOR CONSTRUCTION ESTIMATOR Height 182.9 cm (6') 04/30/2024 1:05 PM SENIOR CONSTRUCTION ESTIMATOR Body Mass Index 24.95 04/30/2024 1:05 PM SENIOR CONSTRUCTION ESTIMATOR Plan of Treatment Health Maintenance Due Date [...] 2025 Insurance [employer] [place] PREFERRED Care Teams Hospitality Internship Relationship Specialty Start Date End Date Bo Branch DO PCP - General Internal Medicine 04/30/24
--- OUTSIDE RECORDS SUMMARY | 2025-02-26 11:11 | XMS_ITS | Clinical Summary ---
Author Organization [facility] Address [address] [place] [address] Phone Care Team Providers Care Varnisher Plasticoater Name Role Phone Kamar Kaminski DO Primary Care Provider [phone] Allergies No known active allergies Medications metoprolol [...] Done Comments Influenza Vaccine (#1) [address] [facility] MEDICARE ADVANTAGE Care Teams Varnisher Plasticoater Relationship Specialty Start Date End Date Kamar Kaminski DO [address] [facility] [address] [place] [address] PCP - General Internal Medicine 09/23/18
--- OUTSIDE RECORDS SUMMARY | 2025-02-26 11:11 | XMS_ITS | Clinical Summary ---
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
[2025-02-26 11:12] LABS: Hematocrit 47.3 % (42.0-52.0); Hemoglobin 16.2 g/dL (14.0-18.0); Immature Granulocyte Percent A 0.5 % (0-0.5); Lymphocytes Absolute Auto 1.31 K/mm3 (0.9-3.2); Mean Corpuscular HGB Conc 34.2 g/dl (32-36); Mean Corpuscular Hemoglobin 34.2 pg (26-34); Mean Corpuscular Volume 99.8 fl (80-100); Nucleated Red Blood Cells Absolute Auto 0.000 K/mm3 (0.0-0.012); Nucleated Red Blood Cells Perc 0.0 % (0.0-0.2); Platelet Count Result 135 k/mm3 (150-375); Red Blood Count 4.74 M/mm3 (4.6-6.20); White Blood Count 6.4 K/mm3 (4.5-10.0)
[2025-02-26 11:15] LABS: Add Urine Microscopic? NO; Appearance Urine Clear (Clear); Glucose Urine UA 2+ mg/dL (Negative); Leukocyte Esterase Ur Negative LEU/UL (Negative); Nitrate Urine Negative (Negative); Specific Grav Ur 1.010 (1.001-1.035)
[2025-02-26 11:43] LABS: Alanine Aminotransferase 24 U/L (6-50); Albumin Level 4.0 g/dL (3.5-5.1); Alkaline Phosphatase 66 U/L (38-126); Anion Gap 6 mmol/L (4-12); Aspartate Amino Transferase 30 U/L (17-59); Bilirubin,Total 0.8 mg/dL (0.2-1.3); Blood Urea Nitrogen 8 mg/dL (9-20); CRP < 0.5 mg/dL (<1.0); Calcium 8.9 mg/dL (8.4-10.2); Carbon Dioxide 27 mmol/L (22-30); Chloride 95 mmol/L (98-107); Estimated Glomerular Filt Rate > 60; Glucose 223 mg/dL (65-110); Potassium 4.5 mmol/L (3.4-5.0); Sodium 128 mmol/L (137-145); Total Protein 7.0 g/dL (6.3-8.2)
== END 2025-02-26 10:31 | disposition home or self-care (01) ==
PROVIDERS: PCP Internal Medicine; Visit Provider Internal Medicine
DX: M06.09 Rheumatoid arthritis without rheumatoid factor, multiple sites (principal); Z79.899 Other long term (current) drug therapy
CPT/HCPCS: 36415; 80053; 81003; 84100; 85025; 85652; 86140

== ENCOUNTER 2025-04-07 11:59 | Outpatient (CLI) | payer MEDICARE, OTHER, SELFPAY ==
--- NOTE | ~2025-04-07 | PE_ITS ---
EXAMINATION: PET skull to mid thigh DATE: 04/07/2025 14:01 INDICATION: Lung lesion. TECHNIQUE: Blood glucose level was 145 mg/dL. 10.464 mCi of 18- fluorodeoxyglucose (18-FDG) was administered i.v. Low dose computed tomography (CT) images were acquired from the base of the brain to the proximal thighs for attenuation correction and anatomic localization. Automated exposure control was employed. Dose-length product (DLP) was 912 mGy-cm. Positron emission tomography (PET) images were acquired in the same distribution. COMPARISON: Chest CT 02/20/2025 FINDINGS: Head/neck: There are no pathologically enlarged lymph nodes. Chest: There is mild emphysema. There is a 1.6 cm nodule in right lung upper lobe with maximum SUV of 6.9, new from 02/20/2025. There is a 3.8 x 2.2 cm area of crazy paving without increased activity abutting the hilum in superior segment right lower lobe. No pleural effusion. The heart size is normal. There are coronary artery calcifications. No pericardial effusion. There is a normal- sized right hilar and right paratracheal lymph nodes with increased activity. Abdomen/pelvis/proximal thighs: The liver, gallbladder, spleen, pancreas, and right adrenal gland are normal. There are hypodense masses in left adrenal gland measuring up to 1.4 cm, consistent with adenomas. There are cysts in right kidney measuring up to 1.9 cm the left kidney is normal. The prostate is mildly enlarged. There are no dilated loops of bowel. The appendix is normal. There are no pathologically enlarged lymph nodes. There is no free intraperitoneal fluid. There is no osseous malignancy. IMPRESSION: 1. Stable crazy paving without increased activity in superior segment right lower lobe, probably benign. Noncontrast low-dose chest CT is recommended in 6 months. 2. New 1.6 cm nodule in right lung upper lobe with increased activity, likely infection given the rapid appearance. 3. Normal-sized right hilar and right paratracheal lymph nodes with increased activity, likely reactive. 4. Mild emphysema. Reviewed, dictated and finalized at location E. IMPRESSION: 1. Stable crazy paving without increased activity in superior segment right low er lobe, probably benign. Noncontrast low-dose chest CT is recommended in 6 mon ths. 2. New 1.6 cm nodule in right lung upper lobe with increased activity, likely i nfection given the rapid appearance. 3. Normal-sized right hilar and right paratracheal lymph nodes with increased a ctivity, likely reactive. 4. Mild emphysema.
--- OUTSIDE RECORDS SUMMARY | 2025-04-07 14:03 | XMS_ITS | Clinical Summary ---
Author Organization 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
--- OUTSIDE RECORDS SUMMARY | 2025-04-07 14:03 | XMS_ITS | Clinical Summary ---
Author Organization [facility] [employer] [facility] Address [address] [place] [address] Care Team Providers Care Mandrel Puller Name Role Phone JoleneGómez dorseycesar Haas DO Primary Care Provider [phone] Oscar Cedillo MD Unavailable Source Comments [facility] [employer] [facility],non-owned Affiliates and Associated Physician Practices is amultiple site organization consisting of ambulatory clinics and hospital sitesin [place], [place], [place] and [place]. This disclosure is being madepursuant to the Care Everywhere program and may not contain all information available regarding this patient. Last updated 18.[facility] [employer] Allergies No known active allergies Medications * [...] post surg Active Vitamin D, Ergocalciferol , 31911 units CAPS Take by mouth every 30 [...] Date Smoking Tobacco: Every Day Cigarettes 1.5 47.8 Started: 1977 Smokeless Tobacco: Never Alcohol Use [...] FLEX SIG - COLON CA SCREENING 1961 LIPID TESTING 1961 HIV SCREENING 1976 HEPATITIS C SCREENING 09/14/1979 DTAP/TDAP/TD VACCINES (1 - Tdap) 1980 PNEUMOCOCCAL VACCINE 50+ (1 of 2 - PCV) 1980 ZOSTER VACCINE (1 of 2) 09/19/2011 DEPRESSION SCREENING 06/11/2024 COVID-19 VACCINE ( - 2024- season) 2025 04/29/2021, 08/24/2020, 07/27/2020 INFLUENZA VACCINE (#1) 2025 SCREENING FOR DIABETES 11/20/2025 3, 10/18/2022, 10/18/2022, Additional history exists Respiratory Syncytial Virus (RSV) Vaccine Pt: or [...] this topic Medical Devices Implanted Type Area Finish Production Manager Device Identifier Shelf Expiration Date Model / Serial / Lot Cmnt Bone Djo Srg Cblt 40gm Hvisc Strl Implanted:Qty: 2 on 04/27/2022 by Earle Hopper MD at [facility] Right: Knee [employer] 07/07/2023 600-15-000 / / [id number] Cmpnt Ptlr Std 31mm 3 Pg Kn Ser A Implanted:Qty: 1 on 04/27/2022 by Earle Hopper MD at [facility] Right: Knee [employer] 03/14/2027 [id number] / / [id number] Tray Tib 79mm Kn Cocr I Beam Implanted:Qty: 1 on 04/27/2022 by Earle Hopper MD at [facility] Right: Knee [employer] 01/20/2032 [id number] / / [id number] Cmpnt Fem Kn Rt Cr Cmnt Prm Vngrd Intlk Implanted:Qty: 1 on 04/27/2022 by Earle Hopper MD at [facility] Right: Knee [employer] 03/15/2032 [id number] / / [id number] Brng [id number] Vngrd Arcm Kn Ant Stab Implanted:Qty: 1 on 04/27/2022 by Earle Hopper MD at [facility] Right: Knee [employer] 09/08/2026 [id number] / / [id number] Cmpnt Ptlr Std 31mm 3 Pg Kn Ser A Implanted:Qty: 1 on 11/20/2022 by Earle Hopper MD at [facility] Left: Knee [employer] 09/14/2027 [id number] / / [id number] Brng [id number] Vngrd Arcm Kn Ant Stab Implanted:Qty: 1 on 11/20/2022 by Earle Hopper MD at [facility] Left: Knee [employer] 09/22/2027 [id number] / / [id number] Cmnt Bone Plc R 40gm Grn Implanted:Qty: 1 on 11/20/2022 by Earle Hopper MD at [facility] Left: Knee [employer] 04/10/2025 [id number] / / [id number] Cmnt Bone Plc R 40gm Grn Implanted:Qty: 1 on 11/20/2022 by Earle Hopper MD at [facility] Left: Knee [employer] 12/08/2024 [id number] / / [id number] Cmpnt Fem Kn Lt Cr Cmnt Prm Vngrd Intlk 67.5 Mm Implanted:Qty: 1 on 11/20/2022 by Earle Hopper MD at [facility] Left: Knee [employer] 10/04/2032 [id number] / / [id number] Tray Tib 79mm Kn Cocr I Beam Implanted:Qty: 1 on 11/20/2022 by Earle Hopper MD at [facility] Left: Knee [employer] 09/05/2032 [id number] / / [id number] Procedures Procedure Name Priority Date/Time Associated Diagnosis Comments GLUCOSE - POINT OF CARE Routine 11/20/2022 8:09 AM CDT from Last 3 Months or Most Recently Relevant to Health Maintenance Results * (ABNORMAL) GLUCOSE - POINT OF CARE (11/20/2022 8:09 AM CDT) Pathologist [facility] Glucose WB/POC 149(H) 70 - 106 mg/dL 11/20/2022 8:10 AM CDT [facility] Specimen Type Venous 11/20/2022 8:10 AM CDT [facility] Blood BLOOD SPECIMEN / Unknown 11/20/2022 8:09 AM CDT 11/20/2022 8:10 AM CDT us Earle Hopper MD LAB - POINT OF CARE ORDERABLE S Final Result [facility] [address] [place] [address] from Last 3 Months or Most Recently Relevant to Health Maintenance Insurance [employer] Advance Directives * Full Code (Latest Code [...] 2:54 PM 04/28/2022 3:02 PM Care Teams Mandrel Puller Relationship Specialty Start Date End Date Kamar Kaminski DO [address] [place] [address] PCP - General Internal Medicine 11/08/21 Oscar Cedillo MD [address] [place] [address] Cardiovascular Disease 04/12/22
--- OUTSIDE RECORDS SUMMARY | 2025-04-07 14:03 | XMS_ITS | Clinical Summary ---
Author Organization [facility] Address [address] [place] [address] Care Team Providers Care Trucking Supervisor Name Role Phone Unavailable Primary Care Provider [...]
--- OUTSIDE RECORDS SUMMARY | 2025-04-07 14:03 | XMS_ITS | Clinical Summary ---
Author Organization [facility] Address [address] [place] [address] Phone Care Team Providers Care Bottle Tester Name Role Phone Kamar Kaminski DO Primary Care Provider [phone] Allergies No known active allergies Medications metoprolol [...] Done Comments Influenza Vaccine (#1) 2025 Insurance [facility] MEDICARE ADVANTAGE Care Teams Bottle Tester Relationship Specialty Start Date End Date Kamar Kaminski DO [address] [facility] [address] [place] [address] PCP - General Internal Medicine 09/23/18
--- OUTSIDE RECORDS SUMMARY | 2025-04-07 14:03 | XMS_ITS | Clinical Summary ---
Author Organization [facility] [address] Address [address] [place] [address] Care Team Providers Care Sap Architect Name Role Phone Bo Branch DO Primary Care Provider [phone] Allergies No known active allergies Medications metoprolol XL (TOPROL-XL) 100 mg 24 hr tablet Take 1 tablet (100 mg total) by mouth daily 10/28/19 20 Active Eliquis 5 mg tablet Take 1 tablet (5 mg total) by mouth 2 (two) times a day 11/04/19 20 Active spironolactone (ALDACTONE) 25 mg tablet Take 1 tablet (25 mg total) by mouth daily 90 tablet 2 10/09/19 25 Active dilTIAZem XR (DILT-XR) 240 mg 24 hr capsule Take 1 capsule (240 mg total) by mouth daily 90 capsule 2 10/09/19 25 Active dilTIAZem XR (CARDIZEM CD,DILACOR XR) 240 mg 24 hr capsule Take 1 capsule (240 mg total) by mouth daily 14 capsule 10/10/19 25 026 Active lisinopriL (PRINIVIL,ZEST RIL) 20 mg tablet Take 1 tablet (20 mg total) by mouth daily 90 tablet 03/20/20 25 Active lisinopriL (PRINIVIL,ZEST RIL) 20 mg tablet Take 1 tablet (20 mg total) by mouth daily 14 tablet 07/10/19 25 025 Discontinued lisinopriL (PRINIVIL,ZEST RIL) 20 mg tablet TAKE 1 TABLET DAILY 90 tablet 1 09/23/19 25 10/10/2 025 Discontinued(Re order) Active Problems No known active problems Encounters Date Type Department Care Team Description 03/20/2025 Telephone [facility] Card[facility] [address] [place] [address] Oscar Cedillo MD from Last 3 Months Surgical History Surgery Date Site/Laterality Comments KNEE [...] on file 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 Gender Identity Not on file Sexual Orientation Not on file Obstetrics History Last Filed Vital Signs Vital Sign Reading Time Taken Comments Blood Pressure 120/74 04/30/2024 1:05 PM CAKE PUNCHER Pulse 75 04/30/2024 1:05 PM CAKE PUNCHER Temperature - - Respiratory Rate - - Oxygen Saturation 96% 04/30/2024 1:05 PM CAKE PUNCHER Inhaled Oxygen Concentration - - Weight 83.5 kg (184 lb) 04/30/2024 1:05 PM CAKE PUNCHER Height 182.9 cm (6') 04/30/2024 1:05 PM CAKE PUNCHER Body Mass Index 24.95 04/30/2024 1:05 PM CAKE PUNCHER Plan of Treatment Health Maintenance Due Date Last Done Comments Colon Cancer Screening-Colonoscopy 1961 Depression Screening 1961 Hepatitis C Screening 1961 Prostate Cancer Screening-PSA 1961 DTaP/Tdap/Td Vaccine (1 - Tdap) 1972 Hepatitis B Screening 09/19/1979 Regular Well Visit/Exam 18-64 09/19/1979 Pneumococcal vaccine <65 (1 of 2 - PCV) 1980 Zoster Vaccine (1 of 2) 09/19/2011 Covid-19 Vaccine (4 - 2024- season) 2025 04/29/2021, 08/24/2020, 07/27/2020 Influenza Vaccine (#1) 2025 Insurance [employer] [place] PREFERRED Care Teams Sap Architect Relationship Specialty Start Date End Date Bo Branch DO PCP - General Internal Medicine 04/30/24
== END 2025-04-07 12:00 | disposition home or self-care (01) ==
PROVIDERS: PCP Internal Medicine; Visit Provider Internal Medicine Critical Care Medicine
DX: R91.8 Other nonspecific abnormal finding of lung field (principal); J43.9 Emphysema, unspecified
CPT/HCPCS: 78815; A9552

== ENCOUNTER 2025-04-16 08:10 | Outpatient (CLI) | payer MEDICARE, OTHER, SELFPAY ==
--- OUTSIDE RECORDS SUMMARY | 2025-04-16 17:04 | XMS_ITS | Clinical Summary ---
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 Gender Identity Not on file Sexual Orientation Not on file Last Filed Vital Signs Vital Sign Reading Time Taken Comments Blood Pressure 120/74 04/30/2024 1:05 PM MACHINE GUNNER Pulse 75 04/30/2024 1:05 PM MACHINE GUNNER Temperature - - Respiratory Rate - - Oxygen Saturation 96% 04/30/2024 1:05 PM MACHINE GUNNER Inhaled Oxygen Concentration - - Weight 83.5 kg (184 lb) 04/30/2024 1:05 PM MACHINE GUNNER Height 182.9 cm (6') 04/30/2024 1:05 PM MACHINE GUNNER Body Mass Index 24.95 04/30/2024 1:05 PM MACHINE GUNNER Plan of Treatment Health Maintenance Due Date Last Done Comments Colon Cancer Screening-Colonoscopy 1961 Depression Screening 1961 Hepatitis C Screening 1961 Prostate Cancer Screening-PSA 1961 DTaP/Tdap/Td Vaccine (1 - Tdap) 1972 Hepatitis B Screening 09/19/1979 Regular Well Visit/Exam 18-64 09/19/1979 Pneumococcal vaccine <65 (1 of 2 - PCV) 1980 Zoster Vaccine (1 of 2) 09/19/2011 Covid-19 Vaccine ( - 2024- season) 2025 04/29/2021, 08/24/2020, 07/27/2020 Influenza Vaccine (#1) 2025 Insurance [employer] [place] PREFERRED Care Teams Steam Press Tender Relationship Specialty Start Date End Date Bo Branch DO PCP - General Internal Medicine 04/30/24
--- OUTSIDE RECORDS SUMMARY | 2025-04-16 17:04 | XMS_ITS | Clinical Summary ---
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
--- OUTSIDE RECORDS SUMMARY | 2025-04-16 17:04 | XMS_ITS | Clinical Summary ---
Author Organization [facility] Address [address] [place] [address] Care Team Providers Care Filler Leaf Cutter Long Name Role Phone Unavailable Primary Care Provider [...]
--- OUTSIDE RECORDS SUMMARY | 2025-04-16 17:04 | XMS_ITS | Clinical Summary ---
Author Organization [facility] Address [address] [place] [address] Care Team Providers Care Highway Design Engineer Name Role Phone JoleneGómez dorseycesar Haas DO Primary Care Provider [phone] Oscar Cedillo MD Unavailable Source Comments [facility],non-owned Affiliates and Associated Physician Practices is amultiple site organization consisting of ambulatory clinics and hospital sitesin [place], [place], [place] and [place]. This disclosure is being madepursuant to the Care Everywhere program and may not contain all information available regarding this patient. Last updated 18.[facility] Allergies No known active allergies Medications * [...] post surg Active Vitamin D, Ergocalciferol , 78855 units CAPS Take by mouth every 30 [...] this topic Medical Devices Implanted Type Area Summer Clerk Device Identifier Shelf Expiration Date Model / Serial / Lot Cmnt Bone Djo Srg Cblt 40gm Hvisc Strl Implanted:Qty: 2 on 04/27/2022 by Earle Hopper MD at [facility] Right: Knee [employer] 07/07/2023 600-15-000 / / [id number] Cmpnt Ptlr Std 31mm 3 Pg Kn Ser A Implanted:Qty: 1 on 04/27/2022 by Earle Hopper MD at [facility] Right: Knee [employer] 03/14/2027 [id number] / / [id number] Tray Tib 79mm Kn Cocr I Beam Implanted:Qty: 1 on 04/27/2022 by Earle Hopper MD at [facility] Right: Knee [employer] 01/20/2032 [id number] / / [id number] Cmpnt Fem Kn Rt Cr Cmnt Prm Vngrd Intlk Implanted:Qty: 1 on 04/27/2022 by Earle Hopper MD at [facility] Right: Knee [employer] 03/15/2032 [id number] / / [id number] Brng [id number] Vngrd Arcm Kn Ant Stab Implanted:Qty: 1 on 04/27/2022 by Earle Hopper MD at [facility] Right: Knee [employer] 09/08/2026 [id number] / / [id number] Cmpnt Ptlr Std 31mm 3 Pg Kn Ser A Implanted:Qty: 1 on 11/20/2022 by Earle Hopper MD at [facility] Left: Knee [employer] 09/14/2027 [id number] / / [id number] Brng [id number] Vngrd Arcm Kn Ant Stab Implanted:Qty: 1 on 11/20/2022 by Earle Hopper MD at [facility] Left: Knee [employer] 09/22/2027 [id number] / / [id number] Cmnt Bone Plc R 40gm Grn Implanted:Qty: 1 on 11/20/2022 by Earle Hopper MD at [facility] Left: Knee [employer] 04/10/2025 [id number] / / [id number] Cmnt Bone Plc R 40gm Grn Implanted:Qty: 1 on 11/20/2022 by Earle Hopper MD at [facility] Left: Knee [employer] 12/08/2024 [id number] / / [id number] Cmpnt Fem Kn Lt Cr Cmnt Prm Vngrd Intlk 67.5 Mm Implanted:Qty: 1 on 11/20/2022 by Earle Hopper MD at [facility] Left: Knee [employer] 10/04/2032 [id number] / / [id number] Tray Tib 79mm Kn Cocr I Beam Implanted:Qty: 1 on 11/20/2022 by Earle Hopper MD at [facility] Left: Knee [employer] 09/05/2032 [id number] / / [id number] Procedures Procedure Name Priority Date/Time Associated Diagnosis Comments GLUCOSE - POINT OF CARE Routine 11/20/2022 8:09 AM CDT from Last 3 Months or Most Recently Relevant to Health Maintenance Results * (ABNORMAL) GLUCOSE - POINT OF CARE (11/20/2022 8:09 AM CDT) Pathologist [facility] Glucose WB/POC 149(H) 70 - 106 mg/dL 11/20/2022 8:10 AM CDT [facility] Specimen Type Venous 11/20/2022 8:10 AM CDT [facility] Blood BLOOD SPECIMEN / Unknown 11/20/2022 8:09 AM CDT 11/20/2022 8:10 AM CDT us Earle Hopper MD LAB - POINT OF CARE ORDERABLE S Final Result [facility] [address] [place] [address] from Last 3 Months or Most Recently [...] 2:54 PM 04/28/2022 3:[address] Design Engineer Relationship Specialty Start Date End Date Kamar Kaminski DO [address] [place] [address] PCP - General Internal Medicine 11/08/21 Oscar Cedillo MD [address] [place] [address] Cardiovascular Disease 04/12/22
--- OUTSIDE RECORDS SUMMARY | 2025-04-16 17:04 | XMS_ITS | Clinical Summary ---
Author Organization [facility] Address [address] [place] [phone] Phone Care Team Providers Care Behavioral Health Care Manager Name Role Phone Kamar Kaminski DO Primary Care Provider [phone] Allergies No known active allergies Medications metoprolol [...] Done Comments Influenza Vaccine (#1) 2025 Insurance [facility] MEDICARE ADVANTAGE Care Teams Behavioral Health Care Manager Relationship Specialty Start Date End Date Kamar Kaminski DO [address] [facility] [address] [place] [address] PCP - General Internal Medicine 09/23/18
--- NOTE | 2025-04-20 15:50 | WPDSIXMINUTE ---
Six Minute Walk Procedure Procedure Performed Pulmonary Stress Test (6 min walk) Six Minute Walk Six Minute Walk: This is a 6 minute walk test. The test was performed and interpreted in accordance with the 2014 ERS/ATS task force guidelines. Findings: The patient's resting room air oxygen saturation measured by pulse oximetry was 97%, the heart rate was 84 bpm, and the modified Dorian dyspnea score was 0. Patient ambulated for 335 meters and oxygen saturation remained 93 to 95%. At the end of the study the heart rate was 110 bpm and the modified Dorian dyspnea score was 1. The patient did not qualify for supplemental oxygen at rest or with ambulation. There are no prior studies for comparison.
--- NOTE | 2025-04-20 15:52 | WPDPFTINT ---
PFT Procedure Performed PFT Procedure Performed Spirometry with Pre/Post Bronchodilator Plethysmography (Lung Vol) Diffusing Cap (DLCO) Flow Vol Loop PFT Interpretation This is a pulmonary function test with pre and post-bronchodilator spirometry, plethysmography and diffusing capacity. The test was performed and results interpreted in accordance with the 2019 and 2005 ATS/ERS Task Force guidelines respectively using the Global Lung Function Initiative-2012 reference equations. Patient demonstrated good effort and cooperation. Reproducibility criteria were met. The quality of the pre bronchodilator spirometry maneuver was Grade B and post bronchodilator spirometry maneuver was Grade A. Findings: Spirometry: There is decreased maximal expiratory airflow at all lung volumes with a concave expiratory flow tracing. The contour the inspiratory flow tracing is normal. The pre bronchodilator FVC is 5.61 L, 116% predicted. The pre bronchodilator FEV1 is 3.15 L, 85% predicted. The pre bronchodilator FEV1: FVC ratio is 56%. The post bronchodilator FVC is 5.63 L, representing no change. The post bronchodilator FEV1 is 3.31 L, representing a 5% increase. The post bronchodilator FEV1: FVC ratio is 59%. Plethysmography: The total lung capacity is 8.22 L, 111% predicted. The functional residual capacity is 5.91 L, 151% predicted. The residual volume is 2.61 L, 108% predicted. Diffusing capacity: The diffusing capacity unadjusted for hemoglobin and carboxyhemoglobin is 18.5, 65% predicted. The diffusing capacity adjusted for alveolar volume is 2.87, 71% predicted. Impression: There is a mild obstructive abnormality with a normal FEV1. There is no significant improvement after inhaling a single dose of albuterol. The total lung capacity and residual volume are normal with an increased functional residual capacity. This is an abnormal but nonspecific lung volume pattern. The diffusing capacity unadjusted for hemoglobin and carboxyhemoglobin is mildly decreased and normalizes when adjusted for alveolar volume. There are no prior studies for comparison
== END 2025-04-16 08:11 | disposition home or self-care (01) ==
LOC: ANHPFT 08:12
PROVIDERS: PCP Internal Medicine; Visit Provider Internal Medicine Critical Care Medicine
DX: R91.8 Other nonspecific abnormal finding of lung field (principal); J44.9 Chronic obstructive pulmonary disease, unspecified
CPT/HCPCS: 94060; 94618; 94726; 94729